=== PATIENT | male | born 1960 | race Caucasian/White ===

== ENCOUNTER 2022-04-13 11:32 | Outpatient (CLI) | payer MEDICAID, SELFPAY ==
[2022-04-13 14:44] LABS: Chloride* 109 mmol/L (96-114); Potassium* 4.8 mmol/L (3.6-5.1); Sodium* 143 mmol/L (135-149)
[2022-04-13 14:46] LABS: Cholesterol* 204 mg/dL (90-199); Creatinine* 1.2 mg/dL (0.5-1.5); Estimated Glomerular Filt Rate 70 ml/min
[2022-04-13 14:47] LABS: Blood Urea Nitrogen* 27 mg/dL (7-30); Calcium* 9.5 mg/dL (8.4-10.6); Carbon Dioxide* 28 mmol/L (20-32); Glucose* 80 mg/dL (60-115); Triglycerides* 61 mg/dL (40-149)
[2022-04-13 14:48] LABS: HDL Cholesterol* 78 mg/dL (>=40); LDL Cholesterol Calculated 114 mg/dL (<100)
[2022-04-13 15:18] LABS: PSA Diagnostic* 7.57 ng/mL (0.10-4.00)
== END 2022-04-13 11:33 | disposition home or self-care (01) ==
PROVIDERS: PCP Family Medicine; Visit Provider Family Medicine
DX: R97.20 Elevated prostate specific antigen [PSA] (principal); Z13.6 Encounter for screening for cardiovascular disorders
CPT/HCPCS: 80048; 80061; 84153

== ENCOUNTER 2022-06-21 07:44 | Outpatient (CLI) | payer MEDICAID, SELFPAY | END 2022-06-21 07:45 | disposition home or self-care (01) | PROVIDERS: PCP Family Medicine; Visit Provider Surgery | DX: Z86.010 Personal history of colon polyps (principal); K63.5 Polyp of colon; K62.1 Rectal polyp; Z80.0 Family history of malignant neoplasm of digestive organs; Z83.71 Family history of colonic polyps | CPT/HCPCS: 45380; 45385; 88305; 99153; J1200; J2250; J3010 ==

== ENCOUNTER 2022-09-05 16:09 | Emergency (ER) | payer MEDICAID, SELFPAY ==
[2022-09-05 16:15] VITALS: BP 118/76; PULSE 60; RESP 14; TEMP 36.5; O2SAT 97; BMI 27.3
--- NOTE | 2022-09-05 16:31 | ED.GENADULT ---
HPI - General Adult General Chief complaint: Diarrhea Stated complaint: Diarrhea Time Seen by Provider: 09/05/22 16:11 History of Present Illness HPI narrative: Patient is 62 year white male has had watery diarrhea for 24 hours, he feels well otherwise no fever chills no abdominal pain, no blood in his stool. He has had some irritation is anal area but otherwise feels well. No recent travel. No blood in his stool as mention it has been a brown watery stool. He has taken some Imodium that has minimal effect. He has not been eating very much. Related Data Home Medications Medication Instructions Recorded Confirmed betamethasone, augmented 0.05 % topical .as needed PRN 04/12/22 04/13/22 topical ointment Previous Rx's Medication Instructions Recorded peg 3350-electrolytes 236 240 ml PO Q10M #4,000 mL 04/17/22 gram-22.74 gram-6.74 gram-5.86 gram solution (Golytely) Allergies Allergy/AdvReac Type Severity Reaction Status Date / Time escitalopram Allergy Intermediate Dizziness Verified 04/13/22 11:08 amoxicillin Allergy Mild Rash Verified 04/13/22 11:08 Review of Systems Status of ROS: Reports: 6 or more systems reviewed and unremarkable except as noted in History and below Narrative: No history of colitis, Crohn's disease, or ulcerative colitis. No history of exposure to recent colon illness or viral enteritis. [facility] Medical History Migraines ?G43.909 - Migraine, unspecified, not intractable, without status migrainosus (ICD-10) Restless legs syndrome ?G25.81 - Restless legs syndrome (ICD-10) [place] fracture (11/25/03) ?S02.401A - Maxillary fracture, unspecified side, initial encounter for closed fracture (ICD-10) History of severe acute respiratory syndrome coronavirus 2 (SARS-CoV-2) disease (03/15/20) ?Z86.16 - Personal history of COVID-19 (ICD-10) High prostate specific antigen (PSA) (2013) ?R97.20 - Elevated prostate specific antigen [PSA] (ICD-10) Adenomatous polyp of colon (03/15/14) ?D12.6 - Benign neoplasm of colon, unspecified (ICD-10) Surgical History History of nevus excision (2006) ?Z98.890 - Other specified postprocedural states (ICD-10) ?Z87.2 - Personal history of diseases of the skin and subcutaneous tissue (ICD-10) History of cervical spinal surgery (08/09/04) ?Z98.890 - Other specified postprocedural states (ICD-10) Family History Other Colon cancer Social History Narrative: marriedx2, 2 kids, non-smoker, social EtOH Smoking Status: Never smoker How often do you have a drink containing alcohol: 2-3 times a week How many standard drinks containing alcohol do you have on a typical day: 3 or 4 How often do you have six or more drinks on one occasion: Never AUDIT-C Alcohol total score: 4 Non-prescribed substance use: denies use Little interest or pleasure in doing things: not at all Feeling down, depressed, or hopeless: not at all Exam Narrative: Exam Narrative: Objective vital signs unremarkable Abdomen is benign soft nontender no masses no peritonitis Const: Vital Signs, click to edit/add: Vital Signs - 24 hr 09/05/22 16:15 Temperature 97.7 F Pulse Rate [Pulse Oximeter] 60 Respiratory Rate 14 Blood Pressure [Ri ght Upper Arm] 118/76 Pulse Oximetry 97 Oxygen Delivery Me thod Room Air Course Vital Signs Vital signs: Initial Vital Signs Temperature 97.7 F 09/05/22 16:15 Temperature Source Temporal Artery Scan 09/05/22 16:15 Pulse Rate 60 09/05/22 16:15 Respiratory Rate 14 09/05/22 16:15 Blood Pressure 118/76 09/05/22 16:15 Blood Pressure Mean 90 09/05/22 16:15 Pulse Oximetry 97 09/05/22 16:15 Oxygen Delivery Method Room Air 09/05/22 16:15 Vital Signs Temperature 97.7 F 09/05/22 16:15 Pulse Rate 60 09/05/22 16:15 Respiratory Rate 14 09/05/22 16:15 Blood Pressure 118/76 09/05/22 16:15 Pulse Oximetry 97 09/05/22 16:15 Oxygen Delivery Method Room Air 09/05/22 16:15 Temperature 97.7 F 09/05/22 16:15 Pulse Rate 60 09/05/22 16:15 Respiratory Rate 14 09/05/22 16:15 Blood Pressure 118/76 09/05/22 16:15 Pulse Oximetry 97 09/05/22 16:15 Oxygen Delivery Method Room Air 09/05/22 16:15 Medical Decision Making MDM Narrative Medical decision making narrative: Patient is a 62 year white male who is quite healthy who has some watery diarrhea, for about a day, no recent travel, no blood in stool no abdominal pain. At this point I think I would recommend simply observation yogurt by mouth, fluids, Sitz baths as needed to clean, continue the Imodium as needed, update regular doctor next 2-3 days not improving changes concerns worsening regular diet, exclusion of dairy products for a couple of days. They will return if there is issues or concerns. Recommend potassium containing foods such is green leafy vegetables orange use bananas. Also discussed use of a brat diet briefly. Discharge Plan Discharge Clinical Impression: Diarrhea Patient Disposition: Home w/ Parent or Adult Condition: Stable Additional Instructions: Light activity, yogurt by mouth 3 times a day, Sitz baths as needed to clean after diarrhea. May continue Imodium ED as needed. Recheck with primary care in the next 2-3 days not improving return to ED sooner problems or concerns. Avoid dairy products for a couple of days, but may eat otherwise normally Activity Level: Light activity Discharge Diet: Regular Prescriptions: No Action betamethasone, augmented 0.05 % ointment topical .as needed PRN peg 3350-electrolytes [Golytely] 236-22.74-6.74 -5.86 gram recon soln 240 ml PO Q10M Qty: 4000 0RF Rx Instructions: until fecal effluent is clear Follow Up/Referrals: Samuel Liu MD [Primary Care Provider] - Stand Alone Forms: [employer] Info Instructions
== END 2022-09-05 16:46 | disposition home or self-care (01) ==
LOC: ED 16:35
PROVIDERS: Emergency Provider Family Medicine; PCP Family Medicine
DX: R19.7 Diarrhea, unspecified (principal)
CPT/HCPCS: 99282; 99283

== ENCOUNTER 2023-04-26 08:57 | Outpatient (CLI) | payer MEDICAID, SELFPAY | END 2023-04-26 08:58 | disposition home or self-care (01) | PROVIDERS: PCP Family Medicine; Visit Provider Family Medicine | DX: R53.83 Other fatigue (principal); R03.0 Elevated blood-pressure reading, without diagnosis of hypertension; R97.20 Elevated prostate specific antigen [PSA] | CPT/HCPCS: 80048; 80061; 84153 ==

== ENCOUNTER 2023-09-04 12:26 | Outpatient (CLI) | payer MEDICAID, SELFPAY ==
--- NOTE | 2023-09-04 13:00 | MR_ITS ---
Patient: HARDEEP GONZALEZ Facility:?[facility] Patient ID:?[id number] Site Patient ID:?[id number]. Site :?[id number] Study:?MRI-Head W/ and W/O Cont 20 CC DOATERM IAC'S-09/04/2023 2:53:08 PM Ordering Physician:?PEDRO LUIS LAM Final Report: INDICATION: Bilateral hearing loss. COMPARISON: 03/22/2020. TECHNIQUE: Multiplanar T1, T2, FLAIR and diffusion-weighted imaging.. Post gadolinium T1 weighted sequences. FINDINGS: Normal brain parenchymal morphology and signal intensity. No intracranial hemorrhage. No abnormal ventricular dilatation. Intracranial vascular flow voids are preserved. No mass effect. No midline shift. No restricted diffusion to suggest acute ischemia. No intracranial hemorrhage. No abnormal ventricular dilatation. Intracranial vascular flow voids are preserved. No mass effect or midline shift. No restricted diffusion to suggest acute ischemia. No abnormal enhancement or enhancing lesions within the brain parenchyma. Dedicated sequence of the skullbase and IAC`s demonstrates normal course of cranial nerves 7 and 8 from the root entry zone to the fundus of the IAC`s. Normal fluid signal within the cochlea and vestibule. Normal root entry zone of the bilateral trigeminal nerves. No abnormal mass or enhancement within cerebellopontine angles or IAC`s. Bilateral orbits are unremarkable. Normal appearing sella. Visualized paranasal sinuses and mastoid air cells are unremarkable. IMPRESSION: 1. No acute intracranial abnormality 2. Normal brain parenchymal morphology and signal intensity 3. No abnormal enhancement or enhancing lesions. 4. Dedicated sequences of the skull base and IAC`s demonstrates normal course of the cranial nerves. No abnormal mass or enhancement Dictated by Ajit Diaz MD @ 09/05/2023 12:47:46 PM Signed by:?Ajit Diaz MD @09/05/2023 12:47:46 PM (Electronic Signature)
== END 2023-09-04 12:27 | disposition home or self-care (01) ==
LOC: MRI 12:28
PROVIDERS: PCP Family Medicine; Visit Provider Otolaryngology
DX: H91.8X3 Other specified hearing loss, bilateral (principal)
CPT/HCPCS: 70553; A9575

== ENCOUNTER 2024-06-29 10:03 | Outpatient (CLI) | payer MEDICAID, SELFPAY | END 2024-06-29 10:04 | disposition home or self-care (01) | PROVIDERS: PCP Family Medicine; Visit Provider Family Medicine | DX: R97.20 Elevated prostate specific antigen [PSA] (principal); R03.0 Elevated blood-pressure reading, without diagnosis of hypertension; Z13.6 Encounter for screening for cardiovascular disorders | CPT/HCPCS: 80048; 80061; 84153 ==

== ENCOUNTER 2025-01-17 08:38 | Emergency (ER) | payer MEDICAID, SELFPAY ==
--- OUTSIDE RECORDS SUMMARY | 2025-01-17 08:40 | XMS_ITS | Clinical Summary ---
Author Organization [facility] Address [address] [place] [id number] Care Team Providers Care Hydraulic Plumber Helper Name Role Phone Samuel Liu MD Primary Care Provider + Allergies Active Allergy Reactions Criticality Noted Date Comments Amoxicillin Rash Medium 07/03/2010 Penicillins Rash 09/11/2017 Medications betamethasone dipropionate 0.05% (DIPROLENE) 0.05 % ointment APPLY TOPICALLY TO THE AFFECTED AREA TWICE DAILY 15 g 0 4 Active CPAPIndications:O bstructive sleep apnea CPAP machine for home use at pressure: 5-16 CM H20 , Heated humidifier x 1, Humidifier chamber x 1, Full face mask with cushion x 1, Heated tubing x 1, Headgear x 1, Filters: Disposable x 1pk & Reusable x 1pk, Length of Need: 99 months, Frequency of use: Daily 1 Device 11 8 Active rOPINIRole (REQUIP) 1 mg tabletIndications :Restless leg syndrome Take 2 Tablets (2 mg) by mouth 2 times daily. 120 tablet. 1 Active Active Problems Problem Noted Date Diagnosed Date Obstructive sleep apnea 09/19/2017 Elevated PSA 08/02/2013 Restless legs syndrome (RLS) 03/31/2011 Immunizations Immunization Administration Dates Next Due Td (Age >=7 Years) 10/18/2005 Tdap 05/06/2013 Family History Medical History Relation Name Comments Asthma Father Diabetes Son Zachary Type 1 Relation Name Status Comments Brother Alive 3 brothers Father (Age 72) Mother Alive Sister Alive 3 sisters Son Zachary Social History Tobacco Use Types Packs/Day Years Used Date Smoking Tobacco: Never Smokeless Tobacco: Never Alcohol Use Standard Drinks/Week Comments Yes 2.5 (1 standard drink = 0.6 oz p ure alcohol) Sex and Gender Information Value Date Recorded Sex Assigned at Not on file Legal Sex Male 5:23 AM DISCOUNT CLERK Gender Identity Not on file Sexual Orientation Not on file 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 Not on file Not on file N ot on file [employer] Not on file Not on file Not on pablo e 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 [employer] Not on file Not on file Not on f ile Obstetrics History Last Filed Vital Signs Vital Sign Reading Time Taken Comments Blood Pressure 102/60 09/19/2017 8:16 AM CDT Pulse 72 09/19/2017 8:16 AM CDT Temperature 36.6 C (97.8 F) 09/19/2017 8:16 AM CDT Respiratory Rate 20 09/19/2017 8:16 AM CDT Oxygen Saturation 95% 09/19/2017 8:16 AM CDT Inhaled Oxygen Concentration - - Weight 101.2 kg (223 lb) 09/19/2017 8:16 AM CDT Height 199.4 cm (6' 6.5) 07/04/2017 10:53 AM CS T Body Mass Index 25.44 07/04/2017 10:53 AM DISCOUNT CLERK Plan of Treatment Health Maintenance Due Date Last Done Comments Hepatitis C screening for age 18-79 1980 Pneumococcal series for age 50+ (1 of 1 - PCV) 2012 Zoster (shingles) series for age 50+ (1 of 2) 2012 BMI (ht and wt on same day) for age 18+ 07/04/2018 07/04/2017, 04/20/2016 Depression screening for age 12+ 07/04/2018 07/04/2017 Colonoscopy through age 75 03/15/2019 03/15/2014, Lipids for age 45-75 06/26/2022 06/26/2017, 04/20/2016, 04/11/2015, Additional history exists Tetanus booster 05/06/2023 05/06/2013, 10/18/2005 COVID-19 vaccine series ( season) 2025 01/11/2021, 12/15/2020 Influenza Vaccine (#1) 2025 RSV vaccine for adults or (1 - 1-dose 75+ series) 2037 HIV for age 15-65 Completed 06/07/2011 Hepatitis B series for 19+ Aged Out N o longer eligible based on patient's age to complete this topic Procedures Procedure Name Priority Date/Time Associated Diagnosis Comments LIPID PANEL W REFLEX MEASURED LDL Routine 06/26/2017 8:44 AM DISCOUNT CLERK Routine general medical examination at a health care facility COLONOSCOPY SCREENING Routine 03/15/2014 Special screening for malignant neoplasms, colon Family history of colon cancer ANTI HIV 1/2 Routine 06/07/2011 2:09 PM DISCOUNT CLERK Screening for STDs (sexually transmitted diseases) from Last 3 Months or Most Recently Relevant to Health Maintenance Results * (ABNORMAL) LIPID PANEL W REFLEX MEASURED LDL (06/26/2017 8:44 AM DISCOUNT CLERK) CHOLESTEROL,TOTAL 205(H) 100 - 199 mg/dL 06/26/2017 9:59 AM DISCOUNT CLERK [facility] TRIGLYCERIDES 83 <150 mg/dL 06/26/2017 9:59 AM DISCOUNT CLERK [facility] HDL CHOLESTEROL 58 >40 mg/dL 8 9:59 AM DISCOUNT CLERK [facility] NON-HDL CHOLESTEROL 147(H) <145 mg/dl 06/26/2017 9:59 AM DISCOUNT CLERK [facility] CHOL/HDL RATIO 3.53 <4.50 06/26/2017 9:59 AM DISCOUNT CLERK [facility] LDL CHOLESTEROL 130 <=130 mg/dL 06/26/2017 9:59 AM DISCOUNT CLERK [facility] PROVIDER ORDERED STATUS RANDOM 06/26/2017 9:59 AM DISCOUNT CLERK [facility] Blood BLOOD SPECIMEN / Unknown Venipuncture / Unknown 06/26/2017 8:44 AM DISCOUNT CLERK 06/26/2017 8:44 AM DISCOUNT CLERK us Samuel Liu MD CHEMISTRY Final Re sult [address] [address] * COLONOSCOPY SCREENING (03/15/2014) us Samuel Liu MD GI PROCEDURE ORD Final R esult * ANTI HIV 1/2 (06/07/2011 2:09 PM DISCOUNT CLERK) ANTI HIV 1/2 Non-reacti ve [facility] Blood specimen (specimen) BLOOD SPECIMEN / Unknown 06/07/2011 2:09 PM DISCOUNT CLERK 06/07/2011 2:02 PM DISCOUNT CLERK us Samuel Liu MD SEND OUTS Final Re sult [facility] INTERNAL ZIP [id number] [place] [id number] from Last 3 Months or Most Recently Relevant to Health Maintenance Insurance [facility] Care Teams Hydraulic Plumber Helper Relationship Specialty Start Date End Date Samuel Liu MD PCP - General Family Practice 07/02/03
--- OUTSIDE RECORDS SUMMARY | 2025-01-17 08:40 | XMS_ITS | Clinical Summary ---
Author Organization [facility] Address [address], [place] [address] Care Team Providers Care Ecmo Specialist Name Role Phone Clinician, Not Found MD Primary Care Provider Un available Source Comments You are receiving this document as you are listed as the primary care provider,follow-up provider, or the patient has been referred to you for consultation.This is in compliance with the Medicare and[facility] EHR Incentive Program,which states Providers who transition their patient to another setting of careor provider of care or refers their patient to another provider of care shouldprovide summary care record for each transition of care or referral. [facility] Allergies No known active allergies Medications No known medications Active Problems No known active problems Social History Tobacco Use Types Packs/Day Years Used Date Smoking Tobacco: Never Smokeless Tobacco: Never Sex and Gender Information Value Date Recorded Sex Assigned at Not on file Legal Sex Male 4:55 PM PILE DRIVER Gender Identity Not on file Sexual Orientation Not on file Last Filed Vital Signs Vital Sign Reading Time Taken Comments Blood Pressure - - Pulse - - Temperature - - Respiratory Rate - - Oxygen Saturation - - Inhaled Oxygen Concentration - - Weight 107 kg (236 lb) 07/02/2017 11:17 AM PILE DRIVER Height 198.1 cm (6' 6) 07/02/2017 11:17 AM PILE DRIVER Body Mass Index 27.27 07/02/2017 11:17 AM PILE DRIVER Plan of Treatment Health Maintenance Due Date Last Done Comments Colon Cancer Screening Plan Due 1960 Hep C Screening (Preventive Services) 1960 PSA Screening Discussion 1960 Adult Preventive Visit 1980 Cholesterol 1997 Pneumococcal Vaccine 50+ Yrs (1 of 1 - PCV) 2012 Zoster/Shingles Vaccine (1 o f 2) 2012 COVID-19 Vaccine (3 - 2024-2 6 season) 2025 01/11/2021, 12/15/2020 Influenza Vaccine (#1) 2025 08/08/2015 DTaP/Tdap/Td Vaccine (3 - Tdap) 03/10/2025 03/10/2015, 05/06/2013, 10/18/2005 RSV Vaccine (1 - 1-dose 75+ series) 2037 HIV Screening (Preventive Services) Completed 06/07/2011 HepA Vaccine Aged Out No longer eligi ble based on patient's age to complete this topic HepB Vaccine Aged Out No longer eligi ble based on patient's age to complete this topic Hib Vaccine Aged Out No longer eligi ble based on patient's age to complete this topic IPV (Polio) Vaccine Aged Out No longe r eligible based on patient's age to complete this topic MCV4 Vaccine Aged Out No longer eligi ble based on patient's age to complete this topic Meningococcal B Vaccine Aged Out No l onger eligible based on patient's age to complete this topic Insurance [facility] Care Teams Ecmo Specialist Relationship Specialty Start Date End Date Clinician, Not Found, [place] [address] PCP - General 03/17/24
[2025-01-17 08:50] VITALS: BP 164/76; PULSE 83; RESP 16; TEMP 37.4; O2SAT 93; BMI 27.3
--- NOTE | 2025-01-17 09:13 | ED_ITS ---
HPI - Headache General Chief Complaint: Headache/Migraine Stated Complaint: migraine Time Seen by Provider: 01/17/25 08:52 History of Present Illness HPI Narrative: This 64-year-old male states that he has headaches every day since COVID hit about 5 years ago. He comes in today because the pain is worse. He does not report any nausea or light sensitivity. He does not sleep well at night and reports some restless leg symptoms. He is not on any medications currently. He has been using more natural treatments and states that usually he is able to manage these headaches but not recently. He does not have any neurologic deficits. Related Data Previous Rx's ?Medication ?Instructions ?Recorded amitriptyline 25 mg tablet 25 mg PO QHS #30 tabs 01/17 ketorolac 10 mg tablet 10 mg PO TID 5 days #15 tabs 01/17/25 rizatriptan 10 mg tablet (Maxalt) See Rx Instructions PO .COMPLEX 01/17/25 #10 tabs Allergies Allergy/AdvReac Type Severity Reaction Status Date / Time escitalopram Allergy Intermediate Dizziness Verified 01/17/25 08:57 amoxicillin Allergy Mild Rash Verified 01/17/25 08:57 Review of Systems Status of ROS: Reports: 10 or more systems reviewed and unremarkable except as noted in History and below Narrative: Constitutional: No fevers, no weight gain or loss. Eyes: No discharge. No vision changes. HENT: No congestion, no sore throat, no ear pain. Cardiovascular: No chest pain, no palpitations. Respiratory: No shortness of breath, no wheezes, no cough. Gastrointestinal: No abdominal pain, no vomiting, no diarrhea. Genitourinary: No dysuria, no hematuria. Musculoskeletal: Normal range of motion. Skin: No rashes, no pruritis. Neurological: No dizziness, weakness, sensory change, speech change. Endo/Heme/Allergies: No bruising or bleeding. No polydipsia. Pysch: no suicidality, no anxiety. He reports insomnia.. All other systems reviewed and are negative. [facility] Medical History (Updated 01/17/25 @ 10:59 by Abrahan Flores MD) BPH (benign prostatic hyperplasia) ?N40.0 - Benign prostatic hyperplasia without lower urinary tract symptoms (ICD-10) Migraines ?G43.909 - Migraine, unspecified, not intractable, without status migrainosus (ICD-10) Restless legs syndrome ?G25.81 - Restless legs syndrome (ICD-10) High prostate specific antigen (PSA) (2013) ?R97.20 - Elevated prostate specific antigen [PSA] (ICD-10) Adenomatous polyp of colon (03/15/14) ?D12.6 - Benign neoplasm of colon, unspecified (ICD-10) [place] fracture (11/25/03) ?S02.401A - Maxillary fracture, unspecified side, initial encounter for closed fracture (ICD-10) History of severe acute respiratory syndrome coronavirus 2 (SARS-CoV-2) disease (03/15/20) ?Z86.16 - Personal history of COVID-19 (ICD-10) Surgical History Status post open reduction and internal fixation (ORIF) of fracture ?Z98.890 - Other specified postprocedural states (ICD-10) ?Z87.81 - Personal history of (healed) traumatic fracture (ICD-10) History of nevus excision (2006) ?Z98.890 - Other specified postprocedural states (ICD-10) ?Z87.2 - Personal history of diseases of the skin and subcutaneous tissue (ICD-10) History of cervical spinal surgery (08/09/04) ?Z98.890 - Other specified postprocedural states (ICD-10) Family History Other Colon cancer Social History (Updated 04/29/23 @ 01:27 by Samuel Liu MD) Narrative: x 2, 2 kids, non-smoker, 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, 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 What is your current living situation?: I presently have a place to live Problems where you live: no known problems In the past 12 months, utilities in danger of being shut off: no In past 12 months, lack of transportation kept you from medical appts, meetings, work, or getting things needed for daily living: no In the past 12 mos, have been you worried that your food would run out before you had money to buy more?: never true In the past 12 mos, the food you bought just didn't last and you didn't have money to buy more?: never true Smoking Status: Never smoker How often do you have a drink containing alcohol: 2-3 times a week How many standard drinks containing alcohol do you have on a typical day: 3 or 4 How often do you have six or more drinks on one occasion: Never AUDIT-C Alcohol total score: 4 Non-prescribed substance use: marijuana (any form) How often does anyone, including family, friends and others, physically hurt you : never How often does anyone, including family, friends and others, insult or talk down to you: never How often does anyone, including family, friends and others, threaten you with harm: never How often does anyone, including family, friends and others, scream or curse at you: never Exam Narrative: Exam Narrative: Constitutional: Well-developed, well-nourished, no acute distress. HEENT: Normocephalic, atraumatic. Neck: Normal range of motion. Nontender. Supple. Heart: Regular. No murmurs. Normal rate. Intact distal pulses. Lungs: Clear to auscultation. No chest discomfort. No wheezes, rhonchi, or rales. Abdomen: Normal bowel sounds. Nontender. No rebound tenderness. Genitalia: Deferred. Back: No midline tenderness. Normal range of motion. Extremities: Normal range of motion. No injury. Skin: Intact. No rash. Warm. No erythema or pallor. Neurologic: No altered sensation. No weakness. Alert and oriented. Psychiatric: No suicidality. No anxiety or depression. No insomnia. Nursing notes and vitals signs are reviewed. Const: Vital Signs, click to edit/add: Vital Signs - 24 hr 01/17/25 08:50 01/17/25 10:32 Temperature 99.4 F Pulse Rate [Pulse Oximeter] 83 65 Respiratory Rate 16 12 Blood Pressure [Ri ght Upper Arm] 164/76 H Pulse Oximetry 93 93 Oxygen Delivery Me thod Room Air Room Air Course Vital Signs Vital signs: Initial Vital Signs Temperature 99.4 F 01/17/25 08:50 Temperature Source Temporal Artery Scan 01/17/25 08:50 Pulse Rate 83 01/17/25 08:50 Respiratory Rate 16 01/17/25 08:50 Blood Pressure 164/76 H 01/17/25 08:50 Blood Pressure Mean 105 01/17/25 08:50 Blood Pressure Position Sitting 01/17/25 08:50 Pulse Oximetry 93 01/17/25 08:50 Oxygen Delivery Method Room Air 01/17/25 08:50 Vital Signs Temperature 99.4 F 01/17/25 08:50 Pulse Rate 83 01/17/25 08:50 Respiratory Rate 16 01/17/25 08:50 Blood Pressure 164/76 H 01/17/25 08:50 Pulse Oximetry 93 01/17/25 08:50 Oxygen Delivery Method Room Air 01/17/25 08:50 Temperature 99.4 F 01/17/25 08:50 Pulse Rate 65 01/17/25 10:32 Respiratory Rate 12 01/17/25 10:32 Blood Pressure 164/76 H 01/17/25 08:50 Pulse Oximetry 93 01/17/25 10:32 Oxygen Delivery Method Room Air 01/17/25 10:32 Medications Administered Medications: Discontinued Medications Generic Name Dose Route Start Last Admin Trade Name Darnellq PRN Reason Stop Dose Admin Diphenhydramine HCl 50 mg 01/17/25 09:25 01/17/25 09:50 Diphenhydramine 50 Mg/Ml Inj IVP 01/17/25 09:26 50 mg ONCE ONE Administration Sodium Chloride 1,000 mls @ 1,000 mls/hr 01/17/25 09:30 01/17/25 10:20 0.9 % Sodium Chloride 1000 Ml IV 01/17/25 10:29 Infused .Q1H STEVE Infusion Ketorolac Tromethamine 30 mg 01/17/25 09:25 01/17/25 09:48 Ketorolac 30 Mg/Ml Inj IVP 01/17/25 09:26 30 mg ONCE ONE Administration Methylprednisolone Sodium Succinate 125 mg 01/17/25 09:25 01/17/25 09:52 Methylprednisolone Sod Succ 62.5 Mg/Ml (125) IVP 01/17/25 09:26 125 mg ONCE ONE Administration Ondansetron HCl 4 mg 01/17/25 09:25 01/17/25 09:48 Ondansetron 2 Mg/Ml Inj IVP 01/17/25 09:26 4 mg ONCE ONE Administration MDM - Headache MDM Narrative Medical decision making narrative: This patient comes in with report of headache as described above. He states that he gets migraine headaches frequently and typically is able to use [id number] medicines such as Excedrin migraine and get relief. He also reports poor sleep at night. He is not showing any signs of neurologic deficit. There is no indication for imaging studies at this time. An IV was established where the patient received a L of normal saline, Toradol 30 mg, Benadryl 50 mg, Zofran 4 mg, and Solu-Medrol 125 mg. After about an hour he states that he is feeling much better and reports his pain at 2/10 in severity. He is okay to be discharged home. I did provide prescriptions for Toradol, amitriptyline as a possible preventative medicine that would help also with sleep potentially. He also received a prescription for Maxalt. Discharge Plan Discharge Clinical Impression: Migraines Patient Disposition: Home, Self-Care Condition: Improved Additional Instructions: Take medications as needed and directed. Follow up with MD for further management and treatment or return if worsening. Prescriptions: New ketorolac 10 mg tablet 10 mg PO TID 5 Days Qty: 15 0RF rizatriptan [Maxalt] 10 mg tablet See Rx Instructions .ROUTE .COMPLEX Qty: 10 2RF Rx Instructions: take 1 tab at onset of headache; if no relief may repeat 1 tab after at least 2 hrs; max = 3 tabs/24 hr amitriptyline 25 mg tablet 25 mg PO QHS Qty: 30 2RF Follow Up/Referrals: Samuel Liu MD [Primary Care Provider, Family Practice] Stand Alone Forms: [employer] Info Instructions
[2025-01-17] MEDS: ONDANSETRON 2 MG/ML inj 4 MG IVP (09:48)
[2025-01-17] MEDS: METHYLPREDNISOLONE SOD SUCC 62.5 MG/ML (125) 125 MG IVP (09:52)
[2025-01-17 10:32] VITALS: PULSE 65; RESP 12; O2SAT 93
== END 2025-01-17 11:07 | disposition home or self-care (01) ==
PROVIDERS: Emergency Provider Emergency Medicine Emergency Medical Services; PCP Family Medicine
DX: G43.709 Chronic migraine without aura, not intractable, without status migrainosus (principal)
CPT/HCPCS: 96374; 96375; 99284; J1200; J1885; J2405; J2919; J7030

== ENCOUNTER 2025-01-19 18:10 | Emergency (ER) | payer MEDICAID, SELFPAY ==
[2025-01-19] VITALS (7 sets, daily range): BP systolic 135–163; BP diastolic 89–96; PULSE 65–75; RESP 16–18; TEMP 36.4–36.7; O2SAT 92–97; BMI 27.3
--- OUTSIDE RECORDS SUMMARY | 2025-01-19 18:12 | XMS_ITS | Clinical Summary ---
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 Payment Not on file Not on file N ot on file [employer] Not on file Not on [...] Body Mass Index 25.44 07/04/2017 10:53 AM SOFTWARE CONFIGURATION SPECIALIST Plan of Treatment Health Maintenance Due Date [...] REFLEX MEASURED LDL Routine 06/26/2017 8:44 AM SOFTWARE CONFIGURATION SPECIALIST Routine general medical examination at a health care facility COLONOSCOPY SCREENING Routine 03/15/2014 Special screening for malignant neoplasms, colon Family history of colon cancer ANTI HIV 1/2 Routine 06/07/2011 2:09 PM SOFTWARE CONFIGURATION SPECIALIST Screening for STDs (sexually transmitted diseases) from Last 3 Months or Most Recently Relevant to Health Maintenance Results * (ABNORMAL) LIPID PANEL W REFLEX MEASURED LDL (06/26/2017 8:44 AM SOFTWARE CONFIGURATION SPECIALIST) CHOLESTEROL,TOTAL 205(H) 100 - 199 mg/dL 06/26/2017 9:59 AM SOFTWARE CONFIGURATION SPECIALIST [facility] TRIGLYCERIDES 83 <150 mg/dL 06/26/2017 9:59 AM SOFTWARE CONFIGURATION SPECIALIST [facility] HDL CHOLESTEROL 58 >40 mg/dL 8 9:59 AM SOFTWARE CONFIGURATION SPECIALIST [facility] NON-HDL CHOLESTEROL 147(H) <145 mg/dl 06/26/2017 9:59 AM SOFTWARE CONFIGURATION SPECIALIST [facility] CHOL/HDL RATIO 3.53 <4.50 06/26/2017 9:59 AM SOFTWARE CONFIGURATION SPECIALIST [facility] LDL CHOLESTEROL 130 <=130 mg/dL 06/26/2017 9:59 AM SOFTWARE CONFIGURATION SPECIALIST [facility] PROVIDER ORDERED STATUS RANDOM 06/26/2017 9:59 AM SOFTWARE CONFIGURATION SPECIALIST [facility] Blood BLOOD SPECIMEN / Unknown Venipuncture / Unknown 06/26/2017 8:44 AM SOFTWARE CONFIGURATION SPECIALIST 06/26/2017 8:44 AM SOFTWARE CONFIGURATION SPECIALIST us Samuel Liu MD CHEMISTRY Final Re sult [address] [address] * COLONOSCOPY SCREENING (03/15/2014) us Samuel Liu MD GI PROCEDURE ORD Final R esult * ANTI HIV 1/2 (06/07/2011 2:09 PM SOFTWARE CONFIGURATION SPECIALIST) ANTI HIV 1/2 Non-reacti ve [facility] Blood specimen (specimen) BLOOD SPECIMEN / Unknown 06/07/2011 2:09 PM SOFTWARE CONFIGURATION SPECIALIST 06/07/2011 2:02 PM SOFTWARE CONFIGURATION SPECIALIST us Samuel Liu MD SEND OUTS Final Re sult [facility] INTERNAL ZIP [address] [place] [id number] from Last 3 Months or Most Recently Relevant to Health Maintenance Insurance [facility] Care Teams Administrative Services Coordinator Relationship Specialty Start Date End Date Samuel Liu MD PCP - General Family Practice 07/02/03
--- OUTSIDE RECORDS SUMMARY | 2025-01-19 18:12 | XMS_ITS | Clinical Summary ---
Author Organization [facility] Address [address], [place] [address] Care Team Providers Care Field Agent Name Role Phone Clinician, Not Found MD Primary Care Provider Un available Source Comments You are receiving this document as you are listed as the primary care provider,follow-up provider, or the patient has been referred to you for consultation.This is in compliance with the Medicare and[facility] Incentive [facility],which states Providers who [...] on file Legal Sex Male 4:55 PM PATIENT ACCESS SPECIALIST Gender Identity Not on file Sexual Orientation Not on file Last Filed Vital Signs Vital Sign Reading Time Taken Comments Blood Pressure - - Pulse - - Temperature - - Respiratory Rate - - Oxygen Saturation - - Inhaled Oxygen Concentration - - Weight 107 kg (236 lb) 07/02/2017 11:17 AM PATIENT ACCESS SPECIALIST Height 198.1 cm (6' 6) 07/02/2017 11:17 AM PATIENT ACCESS SPECIALIST Body Mass Index 27.27 07/02/2017 11:17 AM PATIENT ACCESS SPECIALIST Plan of Treatment Health Maintenance Due [...] patient's age to complete this topic Insurance [facility] Care Teams Field Agent Relationship Specialty Start Date End Date Clinician, Not Found, [place] [address] PCP - General 03/17/24
[2025-01-19] MEDS: METOCLOPRAMIDE HCL 10 MG in 0.9 % SODIUM CHLORIDE 100 ml 100 ML 306 MG IVPB (19:04)
--- NOTE | 2025-01-19 19:09 | ED_ITS ---
HPI - General Adult General Date Seen: 01/19/25 Chief complaint: Headache/Migraine Stated complaint: migraine Time Seen by Provider: 01/19/25 18:28 History of Present Illness HPI narrative: Patient is a 64-year-old here with his for evaluation of headache. He notes chronic daily migraine since having COVID 5 years ago. He told me he was seen by multiple people including Neurology at [facility], he said people gave him more more medications and nothing seemed to help so he finally discontinued all medications and has been controlling his headache with essential oils and CBD oil. He says he is generally able to keep things at about a 1/10 unless he gets a cold. He has had a cold for the past few days, was here on the for headache control which he says worked but it is now uncontrolled again. There is otherwise no atypical features, he has had headaches this bad before, he has had to going to the hospital for headaches before although not super frequently. He has not had fevers, vomiting, or neurologic changes or other severe symptoms Related Data Previous Rx's ?Medication ?Instructions ?Recorded amitriptyline 25 mg tablet 25 mg PO QHS #30 tabs 01/17 ketorolac 10 mg tablet 10 mg PO TID 5 days #15 tabs 01/17/25 rizatriptan 10 mg tablet (Maxalt) See Rx Instructions PO .COMPLEX 01/17/25 #10 tabs zolmitriptan 5 mg tablet (Zomig) 5 mg PO Q2-4H PRN cassie lazarus 01/19/25 headache #10 tabs Allergies Allergy/AdvReac Type Severity Reaction Status Date / Time escitalopram Allergy Intermediate Dizziness Verified 01/17/25 08:57 amoxicillin Allergy Mild Rash Verified 01/17/25 08:57 Review of Systems Status of ROS: Reports: 10 or more systems reviewed and unremarkable except as noted in History and below [facility] Medical History BPH (benign prostatic hyperplasia) ?N40.0 - Benign prostatic hyperplasia without lower urinary tract symptoms (ICD-10) Migraines ?G43.909 - Migraine, unspecified, not intractable, without status migrainosus (ICD-10) Restless legs syndrome ?G25.81 - Restless legs syndrome (ICD-10) High prostate specific antigen (PSA) (2013) ?R97.20 - Elevated prostate specific antigen [PSA] (ICD-10) Adenomatous polyp of colon (03/15/14) ?D12.6 - Benign neoplasm of colon, unspecified (ICD-10) [place] fracture (11/25/03) ?S02.401A - Maxillary fracture, unspecified side, initial encounter for closed fracture (ICD-10) History of severe acute respiratory syndrome coronavirus 2 (SARS-CoV-2) disease (03/15/20) ?Z86.16 - Personal history of COVID-19 (ICD-10) Surgical History Status post open reduction and internal fixation (ORIF) of fracture ?Z98.890 - Other specified postprocedural states (ICD-10) ?Z87.81 - Personal history of (healed) traumatic fracture (ICD-10) History of nevus excision (2006) ?Z98.890 - Other specified postprocedural states (ICD-10) ?Z87.2 - Personal history of diseases of the skin and subcutaneous tissue (ICD-10) History of cervical spinal surgery (08/09/04) ?Z98.890 - Other specified postprocedural states (ICD-10) Family History Other Colon cancer Social History Narrative: x 2, 2 kids, non-smoker, 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, 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 What is your current living situation?: I presently have a place to live Problems where you live: no known problems In the past 12 months, utilities in danger of being shut off: no In past 12 months, lack of transportation kept you from medical appts, meetings, work, or getting things needed for daily living: no In the past 12 mos, have been you worried that your food would run out before you had money to buy more?: never true In the past 12 mos, the food you bought just didn't last and you didn't have money to buy more?: never true Smoking Status: Never smoker Second hand tobacco smoke exposure: No How often do you have a drink containing alcohol: 2-3 times a week How many standard drinks containing alcohol do you have on a typical day: 3 or 4 How often do you have six or more drinks on one occasion: Never AUDIT-C Alcohol total score: 4 Non-prescribed substance use: marijuana (any form) How often does anyone, including family, friends and others, physically hurt you : never How often does anyone, including family, friends and others, insult or talk down to you: never How often does anyone, including family, friends and others, threaten you with harm: never How often does anyone, including family, friends and others, scream or curse at you: never Exam Narrative: Exam Narrative: Vital signs reviewed In general, alert, nontoxic middle-aged male. Looks comfortable. Head: Normocephalic, atraumatic. Eyes: Sclera clear. Pupils equal and reactive. ENT: Mucous membranes moist. Neck: Supple without adenopathy. Neurologic: Alert, conversant. Speech fluent, face symmetric. Moves all extremities equally. Skin: Warm, dry well perfused. Affect: Normal. Const: Vital Signs, click to edit/add: Vital Signs - 24 hr 01/19/25 18:22 Temperature 97.6 F Pulse Rate [Pulse Oximeter] 68 Respiratory Rate 16 Blood Pressure [Ri ght Upper Arm] 163/91 H Pulse Oximetry 95 Oxygen Delivery Me thod Room Air Course Course ED Course: Will place an IV, give Toradol, Reglan, Benadryl and a L of fluid as this worked well for him last time. In terms of what to use at home, he was prescribed Toradol, amitriptyline and rizatriptan. He has not had good success with these medications, perhaps not surprising since it sounds like he has been tried on numerous things in the past without effect. He does have an appointment for Botox in 9 days time so he is hoping just to make it until then. He says he typically does not like taking narcotics but would not be opposed to a short course to get him through the next week. Discussed that narcotics are generally not her 1st choice for migraine as rebound can be, problem, but given that he has had no luck with migraine medications and that he has a different plan in [facility] for a week from now probably not unreasonable. He feels significantly improved after medications. I have prescribed Zomig to see if a different triptan would work better for him I also gave him some tramadol. He can use these as needed, hopefully keep headache under control for him until he follows up for Botox next week. Return as needed. Vital Signs Vital signs: Initial Vital Signs Temperature 97.6 F 01/19/25 18:22 Temperature Source Temporal Artery Scan 01/19/25 18:22 Pulse Rate 68 01/19/25 18:22 Respiratory Rate 16 01/19/25 18:22 Blood Pressure 163/91 H 01/19/25 18:22 Blood Pressure Mean 115 H 01/19/25 18:22 Blood Pressure Position Sitting 01/19/25 18:22 Pulse Oximetry 95 01/19/25 18:22 Oxygen Delivery Method Room Air 01/19/25 18:22 Vital Signs Temperature 97.6 F 01/19/25 18:22 Pulse Rate 68 01/19/25 18:22 Respiratory Rate 16 01/19/25 18:22 Blood Pressure 163/91 H 01/19/25 18:22 Pulse Oximetry 95 01/19/25 18:22 Oxygen Delivery Method Room Air 01/19/25 18:22 Temperature 98.0 F 01/19/25 21:02 Pulse Rate 72 01/19/25 21:02 Respiratory Rate 18 01/19/25 21:02 Blood Pressure 138/89 01/19/25 21:02 Pulse Oximetry 97 01/19/25 21:00 Oxygen Delivery Method Room Air 01/19/25 21:00 Medications Administered Medications: Discontinued Medications Generic Name Dose Route Start Last Admin Trade Name Freq PRN Reason Stop Dose Admin Diphenhydramine HCl 25 mg 01/19/25 18:44 01/19/25 19:05 Diphenhydramine 50 Mg/Ml Inj IVP 01/19/25 18:45 25 mg ONCE ONE Administration Sodium Chloride 1,000 mls @ 1,000 mls/hr 01/19/25 18:45 01/19/25 20:02 0.9 % Sodium Chloride 1000 Ml IV 01/19/25 19:44 Infused .Q1H STEVE Infusion Metoclopramide HCl 10 mg/ 102 mls @ 306 mls/hr 01/19/25 18:44 01/19/25 19:25 Sodium Chloride IVPB 01/19/25 18:45 Infused ONCE ONE Infusion Magnesium Sulfate/Dextrose 1 gm in 100 mls @ 100 mls/hr 01/19/25 19:35 01/19/25 20:59 Magnesium Sulf 1 G/100 Ml IVPB 01/19/25 20:34 Infused ONCE ONE Infusion Ketorolac Tromethamine 15 mg 01/19/25 18:44 01/19/25 19:06 Ketorolac 15 Mg/Ml Inj IVP 01/19/25 18:45 15 mg ONCE ONE Administration Methylprednisolone Sodium Succinate 125 mg 01/19/25 19:34 01/19/25 19:52 Methylprednisolone Sod Succ 62.5 Mg/Ml (125) IVP 01/19/25 19:35 125 mg ONCE ONE Administration Medical Decision Making Lab Data Labs: Lab Results 01/19/25 01/19/25 Range/Units 16:00 19:00 Magnesium 2.1 (1.5-2.6) mg/dL Vitamin B12 418 ([phone]) pg/mL Discharge Plan Discharge Clinical Impression: Chronic migraine without aura Patient Disposition: Home, Self-Care Condition: Improved Instructions: Migraine Headache (ED) Additional Instructions: Your magnesium level was 2.1. Your B12 level was 418 (normal). You can try zomig, tramadol or a combination of these to help manage your headaches until you are seen next week. Take prednisone as prescribed. Prescriptions: New zolmitriptan [Zomig] 5 mg tablet 5 mg PO Q2-4H PRN (Reason: migraine headache) Qty: 10 0RF Rx Instructions: do not exceed 2 doses per 24 hrs No Action ketorolac 10 mg tablet 10 mg PO TID 5 Days Qty: 15 0RF rizatriptan [Maxalt] 10 mg tablet See Rx Instructions .ROUTE .COMPLEX Qty: 10 2RF Rx Instructions: take 1 tab at onset of headache; if no relief may repeat 1 tab after at least 2 hrs; max = 3 tabs/24 hr amitriptyline 25 mg tablet 25 mg PO QHS Qty: 30 2RF Follow Up/Referrals: Samuel Liu MD [Primary Care Provider, Family Practice] Stand Alone Forms: [employer] Info Instructions
[2025-01-19] MEDS: METHYLPREDNISOLONE SOD SUCC 62.5 MG/ML (125) 125 MG IVP (19:52)
[2025-01-19] MEDS: MAGNESIUM SULF 1 G/100 ML 1 GM/100 ML PIGGYBACK IVPB (19:53)
[2025-01-19 20:19] LABS: Vitamin B12* 418 pg/mL (243-894)
== END 2025-01-19 21:03 | disposition home or self-care (01) ==
PROVIDERS: Emergency Provider Emergency Medicine; PCP Family Medicine
DX: G43.709 Chronic migraine without aura, not intractable, without status migrainosus (principal)
CPT/HCPCS: 36415; 82607; 83735; 96365; 96367; 96375; 99284; J1200; J1885; J2765; J2919; J3475; J7030

== ENCOUNTER 2025-02-16 03:15 | Emergency (ER) | payer MEDICAID, SELFPAY ==
--- OUTSIDE RECORDS SUMMARY | 2025-01-28 10:30 | XMS_ITS | Encounter Summary ---
Author Organization [facility] Address [address] [place] [id number] Care Team Providers Care Telegraphic Typewriter Operator Name Role Phone Kallie Todd MD Unavailable [phone] Samuel Liu MD Primary Care Provider + Reason for Referral * Other (Routine) - Open Specialty Diagnoses / Procedures Referred By Contac t Referred To Contact Diagnoses Intractable chronic migraine without aura and without status migrainosus Procedures N NEUROLOGY APPOINTMENT Kallie Todd MD [address] [place] [address] Phone: tel: fax: Referral ID Status Reason Start Date Expiration Date Visits Re quested Visits Authorized [id number] Open 04/29/2025 1 1 * Other (Routine) - Authorized Specialty Diagnoses / Procedures Referred By Contac t Referred To Contact Diagnoses Intractable chronic migraine without aura and without status migrainosus Procedures MCN PROCEDURE APPOINTMENT INJECTION,ONABOTULINUMTOXINA Kallie Todd MD [address] [place] [address] Phone: tel: fax: Referral ID Status Reason Start Date Expiration Date V isits Requested Visits Authorized [id number] Authorized 01/28/[phone] Reason for Visit * Reason Comments Migraine Encounter Details Date Type Department Care Team (Late st Contact Info) Description 01/28/2025 10:30 AM CDT Office Visit [facility] [place] [address] [place] [id number] Kallie Todd MD [address] [place] [id number] Intractable chronic migraine without aura and without status migrainosus (Primary Dx) Social History Tobacco Use Types Packs/Day Years Used Date Smoking Tobacco: Never Smokeless Tobacco: Never Tobacco Cessation:Counseling Given: Not Answered Alcohol Use Standard Drinks/Week Comments Yes 3 (1 standard drink = 0.6 oz pur e alcohol) Durning bowling Sex and Gender Information Value Date Recorded Sex Assigned at Not on file Legal Sex Male 8:27 AM CDT Gender Identity Not on file Sexual Orientation Not on file documented as of this encounter Progress Notes * Kallie Todd MD - 01/28/2025 10:30 AM CDT Images from the original note were not included. Referring Provider: No ref. provider found SUBJECTIVE History of Present Illness: Luis Carrington is a 64 y.o. male who is self-referred for migraine headaches. He is here with his girlfriend, Kimber. There are no recent outside medical records available for review today; however, there was a radiology report from [facility] [place] [facility] for a brain MRI, dated 09/04/2023, that was available for review today, which he had performed for bilateral hearing loss, as noted below. He reportshe never had a migraine headache until he had a COVID infection 6 years ago and, since then, he hashad chronic daily migrainous headaches that fluctuate in severity throughout the day. He states it is a frontal headache, initially starting as a dull pressure and then it builds up, becoming a throbb ing pain. When severe, he will have nausea, photophobia and phonophobia. He states his head also feels hot to the touch but he does not notice any flushing he has not had any other cranial autonomic symptoms with the headaches. He reports that he has not had any auras prior to the headaches and he has a constant headache on a daily basis, which can impact sleep, work and activities of daily living. He noted his headaches are worse if he has an underlying cold or upper respiratory infection. He recently had an upper respiratory infection, which exacerbated his headaches and he has been to the emergency room twice this month because of severe headaches. He reports he has tried several medications over the years and also went to [facility] a few years ago for further evaluation. He tells kinza was given a diagnosis of chronic migraines and had imaging of his head and no other apparent abnormalities could be found. He cannot recall all of the names of the medications that he has tried inthe past. He was trying to manage the headaches without prescription medications and has used CBD, peppermint oil and other natural oils, ice packs, the Cefaly device, massage and acupuncture. He reports he has some degree of a throbbing migrainous headache on a daily basis. With the recent flare of headaches, he tried a Medrol Dosepak which was somewhat helpful and was also given a prescription for tramadol to use as needed. He does not take oalt-owc-ebibwhl analgesics, as they were ineffective. He recalls trying zolmitriptan and rizatriptan, which were ineffective. Amitriptyline was tried at one point and that was ineffective but he cannot recall the names of other preventative medications. He does not recall trying a CGRP monoclonal antibody therapy or antagonist, nor has he tried neuro toxin therapy. He reports he has a telemedicine visit with a specialist in [place], [place] next week todiscuss possible bi-occipital nerve decompression surgery to see if that will help with his headaches. MIGRAINE MEDICATION HISTORY: Current Preventative(s): none Prior Preventative(s): amitriptyline (ineffective) Current Rescue Meds: Tramadol, Cefaly device Prior Rescue Meds: oxycodone; rizatriptan/Maxalt (ineffective); zolmitriptan/Zomig (ineffective) Review of Systems: Remaining 10 point ROS is otherwise negative, unless stated above. PAST MEDICAL HISTORY No past medical history on file. PAST SURGICAL HISTORY No past surgical history on file. FAMILY HISTORY No family history on file. SOCIAL HISTORY ALLERGIES/SENSITIVITIES Not on File CURRENT MEDS No current outpatient medications on file. OBJECTIVE Physical Exam: Vital Signs: There were no vitals taken for this visit. General: The patient is alert, cooperative, and not in acute distress. Neurologic Exam: Mental Status: Patient is alert with fluent speech. Orientation, memory, speech content, and cognitive function are intact. Cranial Nerves: CN II: Visual powell full to confrontation. Pupils are equal, round and reactive tolight. No afferent pupillary defect. Fundi - normal. CN III, IV, : Extraocular movements are full and without nystagmus. No ptosis. CN V: Facial sensation is intact to light touch bilaterally. CN VII: Facial strength is symmetric with rest and activation. CN VIII: Hearing is intact to conversation. CN IX, X: Palatal elevation is symmetric. CN XI: Shoulder shrug strength is normal. CN XII: Tongue protrudes midline without fasciculations or atrophy. Motor/MSK Exam: Tone: normal Bulk: normal for age Fasciculations: none Tremor: none Strength (MRC rating scale): Right Left Deltoid 5 5 Biceps 5 5 Triceps 5 5 Wrist extension 5 5 FDI 5 5 APB 5 5 Right Left Iliopsoas 5 5 Quadriceps 5 5 Hamstrings 5 5 Tibialis anterior 5 5 Gastrocnemius 5 5 EHL 5 5 Comment/Other: Sensory Exam: LT: intact and symmetric throughout Proprioception: normal Reflexes: Right Left Brachioradialis 2+ 2+ Biceps 2+ 2+ Triceps 2+ 2+ Patellar 2+ 2+ Achilles 2+ 2+ Plantar response - - Cerebellar Exam: Finger to nose test is normal. No dysmetria. Normal finger tapping bilaterally. Gait/Station: Normal stance and gait; no ataxia. Normal bilateral arm swing. Romberg is negative. Tandem walk intact. Aid: [x]None [] Cane []Quad cane []Walker []Wheelchair []PMD Lab/Radiology/Diagnostics Review: Brain MRI with/without filippo, 09/04/2023 ([facility] [place] [facility]) -no acute infarct, hemorrhage or mass. Normal brain parenchymal morphology and signal intensity. No hydrocephalus. No abnormal enhancement. [] I have personally reviewed images and my impression is above. [x] Images not available for personal review. Report documented above. ASSESSMENT/PLAN Luis Carrington is a 64 y.o. male with: Chronic, intractable migraine headaches without aura Reviewed the potential pathophysiology, etiologies, treatment and prognosis of migraine headaches He is interested in trying Botox therapy for the migraines and a prior authorization request will be sent to his insurance - we reviewed he would receive 155 units in 31 divided doses per the migraine protocol every 12 weeks; we also reviewed possible side effects of this therapy and he was cautioned it may take at least 2-3 rounds of injections before noticing at least 50% improvement of the headaches We reviewed diet and lifestyle modifications that may be useful for individuals with migraines Non-pharmacological treatments were discussed including the role of PT, massage, dry needling, etc,as well as non-invasive neuromodulation devices such as the Cefaly device, SpringTMS, gammaCore, and the Nerivio device Some individuals with migraines may also benefit from an occipital nerve block, supra-orbital nerveblock, and/or sphenopalatine ganglion john, which may be performed through a multidisciplinary painclinic For rescue therapy, I gave him a prescription for Nurtec ODT 75 mg daily as needed - he may take 1 tab/day and up to 18 days per month We reviewed that he needs to limit Tramadol and nany-rks-kqafqqz medications to no more than 3 daysper week for concerns of medication overuse and they can cause rebound headaches He is encouraged to continue to monitor the frequency and severity of the headaches Follow-up: 4-5 months Kallie Todd MD Board Certified in Neurology [facility] ENCOUNTER I spent 60 minutes on the date of the encounter with this patient consisting of activities before, during, and after the encounter including time spent: Preparing to see the patient including review of the chart, tests, and/or outside records. Reviewing and verifying information regarding the chief complaint and history already recorded by ancillary staff and/or the patient. Obtaining history and performing medically appropriate evaluation. Counseling the patient regarding the diagnosis, additional diagnostic considerations, possible diagnostic testing, and any potential options for therapy, including lifestyle, exercise and physical activity, and pharmacotherapy including risks/benefits, side effects, and adverse effects. I also counseled the patient on how to contact me with any questions or concerns, new or worsening symptoms. Ordering medications, tests, and/or procedures, and documenting in the chart. [employer] One ([employer] speech recognition receptionist telephone operator software was used to create portions of this document. Minor errors in receptionist telephone operator may be present.Please call with questions. MIPS 2025 Documentation of current medications reviewed every visit 2. Does patient use tobacco? No documented in this encounter Plan of Treatment Not on file documented as of this encounter Visit Diagnoses Diagnosis Intractable chronic migraine without aura and without status migrainosus- Primary Chronic migraine without aura, with intractable migraine, so stated, without mention of status migrainosus documented in this encounter Care Teams Telegraphic Typewriter Operator Relationship Specialty Start Date End Date Samuel Liu MD [address] [place] [address] PCP - General Family Medicine 01/28/25 Kallie Todd MD [address] [place] [address] Neurology 01/19/25 documented as of this encounter
--- OUTSIDE RECORDS SUMMARY | 2025-02-03 08:15 | XMS_ITS | Encounter Summary ---
Author Organization [facility] Address [address] [place] [address] Care Team Providers Care Distribution Systems Serviceperson Name Role Phone Elsewhere, Pcp Primary Care Provider Unavailabl e Reason for Visit * Reason Onset Date Comments Pre-visit Intake 02/03/2025 * Appointment Request (Routine) - Authorized Specialty Diagnoses / Procedures Referred By Ted montez Referred To Contact Neurology Referral ID Status Reason Start Date Expiration Date V isits Requested Visits Authorized [id number] Authorized 01/19/2025 04/21/2026 1 1 Encounter Details Date Type Department Care Team (Latest Contact Info) Description 02/03/2025 8:15 AM CDT Clinical Communication Virtual Review in [place], [place] [address] [place] [address] Pre-visit Intake Social History Tobacco Use Types Packs/Day Years Used Date Smoking Tobacco: Never Passive Smoke Exposure: Never Smokeless Tobacco: Never Tobacco Cessation:Counseling Given: Not Answered Alcohol Use Standard Drinks/Week Comments Yes 3 (1 standard drink = 0.6 oz pur e alcohol) Humiliation, Afraid, Rape, and Kick questionnair e Answer Date Recorded Within the last year, have y ou been afraid of your partner or ex-partner? No 06/19/2021 Within the last year, have y ou been humiliated or emotionally abused in other ways by your partner or ex-partner? Yes Within the last year, have y ou been kicked, hit, slapped, or otherwise physically hurt by your partner or ex-partner? No 06/19/2021 Within the last year, have y ou been raped or forced to have any kind of sexual activity by your partner or ex-partner? No 06/19/2021 Hunger Vital Sign Answer Date Recorded Within the past 12 months, y ou worried that your food would run out before you got the money to buy more. Never true 06/19/19 22 Within the past 12 months, t he food you bought just didn't last and you didn't have money to get more. Never true 06/19/2021 PRAPARE - Transportation Answer Date Re corded In the past 12 months, has l ack of transportation kept you from medical appointments or from getting medications? No 06/06 In the past 12 months, has l ack of transportation kept you from meetings, work, or from getting things needed for daily living? No 06/19/2021 Housing Stability Vital Sign Answer Luis Enrique e Recorded In the last 12 months, was t here a time when you were not able to pay the mortgage or rent on time? No 06/19/2021 In the last 12 months, how many places have you lived? 1 06/19/2021 In the last 12 months, was t here a time when you did not have a steady place to sleep or slept in a senior living (including now)? Yes 06/19/2021 Depression Answer Date Recor ded PHQ-9 Total Score (max 27) 3 01/10 Education Answer Date Recorded What is the highest level of school you have completed or the highest degree you have received? GED or equivalent Sex and Gender Information Value Date Recorded Sex Assigned at Male 04/04/2021 10:57 AM SENIOR ACCOUNT REPRESENTATIVE Legal Sex Male 5:17 PM SENIOR ACCOUNT REPRESENTATIVE Gender Identity Male 10/15/2017 8:11 AM CDT Sexual Orientation Straight 10/15/2017 8: 11 AM CDT Occupation Industry Job Start Date Job End Date Not on file Not on file Not on file Not on file documented as of this encounter Plan of Treatment Not on file documented as of this encounter Visit Diagnoses Not on filedocumented in this encounter Additional Health Concerns Assessment Noted Time PHQ-9 Depression Total Score: 3 01/11/20 21 12:13 PM CDT documented as of this encounter Care Teams Distribution Systems Serviceperson Relationship Specialty Start Date End Date Elsewhere, Pcp PCP - General Internal Medicine 02/03/25 02/08/25 documented as of this encounter
--- OUTSIDE RECORDS SUMMARY | 2025-02-09 13:00 | XMS_ITS | Encounter Summary ---
Author Organization [facility] Address [address] [place] [address] Care Team Providers Care Physics Instructor Name Role Phone Elsewhere, Pcp Primary Care Provider Unavailabl e Reason for Visit * Appointment Request (Routine) - Closed Specialty Diagnoses / Procedures Referred By Contac t Referred To Contact Neurology Diagnoses Chronic Migraine Referral ID Status Reason Start Date Expiration Date Visits Re quested Visits Authorized [id number] Closed 01/18/2025 04/20/2026 1 1 Encounter Details Date Type Department Care Team (Latest Contact Info) Description 02/09/2025 1:00 PM CDT Comprehensive Visit Department of Neurology in [place], [place] [address] [place] [address] Cedric Sanchez M.D. [address] [place] [address] New Daily Persistent Headache (NDPH) (Primary Dx); Headache Unspecified; Apnea Sleep Obstructive Social History Tobacco Use Types Packs/Day Years Used Date Smoking Tobacco: Never Passive Smoke Exposure: Never Smokeless Tobacco: Never Alcohol Use Standard Drinks/Week Comments Yes 3 [...] place to sleep or slept in a nursing home (including now)? Yes 06/19/2021 Depression Answer Date Recor ded PHQ-9 Total Score (max 27) 3 01/10 Education Answer Date Recorded What is the highest level of school you have completed or the highest degree you have received? GED or equivalent Sex and Gender Information Value Date Recorded Sex Assigned at Male 04/04/2021 10:57 AM COMMISSARY ASSISTANT Legal Sex Male 5:17 PM COMMISSARY ASSISTANT Gender Identity Male 10/15/2017 8:11 AM CDT Sexual Orientation Straight 10/15/2017 8: 11 AM CDT Occupation Industry Job Start Date Job End Date Not on file Not on file Not on file Not on file documented as of this encounter Last Filed Vital Signs Vital Sign Reading Time Taken Comments Blood Pressure 152/82 02/09/2025 12:51 PM CDT Pulse 61 02/09/2025 12:51 PM CDT Temperature - - Respiratory Rate - - Oxygen Saturation - - Inhaled Oxygen Concentration - - Weight 104 kg (228 lb 13.4 oz) 02/09/2025 12:51 PM CDT Height 198.2 cm (6' 6.03) 02/09/2025 12:51 PM C DT Body Mass Index 26.42 02/09/2025 12:51 PM CDT documented in this encounter Consult Notes * David Wagner M.D. - 02/09/2025 1:00 PM CDT SUBJECTIVE Patient's priority concerns: Headaches Goals for today: Discuss Botox for Migraines Daily frontal headaches, with 26/11 persistence. Average 4-6 pain scale day-to-day in the past month. For several years (2019 - 2024), he had maintained average pain score of 1-3 with non-pharmacologic regimen. Believes an upper respiratory illness about a month ago precipitated worsening of headaches. However, he has begun a vitamin detox in the past week which he believes has been helpful. Was also given a 5-day course of prednisone by an ED provider. Weight loss as he didn't feel like eating, down 15-20 lb over past month. Denies eye pain, vision loss, blurred vision, double vision, temporal/jaw pain or tenderness. No clear morning/evening tendency with headaches, but does note on a good night of sleep he feels improvement in headache by the morning. No associated nausea, light-sensitivity, sound sensitivity inthe past month. Cannot identify clear triggers. At times, notes dehydration and fried/processed foods appear to make symptoms worse, but not start a headache. He has maintained minimal headache burden through an extensive non-pharmacologic regimen lately. Regularly visits wellness centers, receives massage/acupuncture, green light, cold therapy. Finds peppermint oil helpful. Cefaly is helpful, uses this most days. IV magnesium, steroids have been helpful during recent ED visits. If he catches an early headache, excedrin migraine is helpful. Has tried triptans, topiramate, amitriptyline, without benefit. COVID messed up my biological clock, so sleep is poor. States that if he stays up until 3-4 AM, he is able to get a few hours of restful sleep. This results in notable improvement in headache in the morning. Trialed CPAP, couldn't find a tolerated mask so has not been treated. August 2020: Saw Dr. Markham - Following COVID infection Mar 2020, developed daily, bifrontal headaches - Dx w/ post-COVID headache - Tx: Topiramate tried for a couple weeks, not tolerated - Preventative, naproxen and rizatriptan PRN. October 2020: Dr. Agarwal, Botox scheduled but patient cancelled. Apr 2021 - May 2021: - Dr. Abad Mancia, sleep study completed, demonstrated mod-severe EDDIE Saw Dr. Todd ([facility]) 01/28/25 - Botox ordered; insurance authorization pending - [facility] ODT prescribed, has not tried Was started on tramadol (3x/day), which was helpful but did not like dizziness, nausea Alcohol 2-3 times per week, 1-2 beers per session. Denies tobacco/nicotine Tried marijuana in the past, not helpful for headaches. Has not used in some time. Medical History[1] Surgical History[2] Social Context: - Living situation: Independent in [place], [place] - Functional status: iADLs - Driving Yes, no concerns - Alcohol: 2-3 times per week, 1-2 drinks - Tobacco: Denies - Recreational substances: Denies - Denies concerns with accessing/affording care, medications, therapies. OBJECTIVE There were no vitals taken for this visit. There is no height or weight on file to calculate BMI. General: Comfortably resting in bed CV: RRR, no murmurs. No peripheral edema or discoloration. Pulm: Normal respiratory effort and oxygenation on room air. GI: Flat, non-tender to palpation Skin: No rashes/lesions on exposed areas NEUROLOGIC EXAMINATION MS: Alert, oriented to person, place time. Provides adequate history with appropriate detail. No appreciable receptive/expressive language deficits. CN: PERRL, EOMI without nystagmus. No visual field/acuity deficits. Face symmetric with intact sensation to touch. Hearing WNL. Speech non-dysarthric, with no tongue deviation. Motor: Strength 0,0 over deltoids, biceps, triceps, wrist flexors/extensors, finger flex/ex, hip flex/ex, knee flex/ex, ankle dorsiflexion, plantarflexion. Tone normal throughout, no tremors or abnormal movements. Sensory: Intact to touch and pinprick over face, UE/LE bilaterally. Reflex: DTR 0,0 over bicep, tricep, brachioradialis, patellae, achilles. Babinski downgoing bilaterally. No ankle clonus. Coordination: FTN, HTS without keyur dysmetria bilaterally. Gait: Steady, with appropriate base, clau, and stride length. No TTP over temporal arteries, TMJ, supraorbital musculature Reduced active/passive ROM with cervical spinal extension, flexion ASSESSMENT / PLAN 64 y/o R-handed man evaluated in neurology clinic for persistent headaches. He has previously been seen by neurology (2020) and treated with a brief trial of topiramate (not tolerated) and one round of Botox injections. Further workup at that time demonstrated moderate-severe sleep apnea He had remained stable with regards to headache frequency, characteristics, and intensity for several years using a regimen of non-pharmacologic therapies until one month ago. At this time, he had anupper respiratory infection (suspected viral), and has subsequently experienced persistent, but increased intensity of his headaches. His current headache (bifrontal, unremitting, pressure sensation) sounds most consistent with a chronic tension-type headache. In the past, he has mentioned migrainous features (photophobia, nausea),but denies these symptoms today. He does not recall perceiving benefit from triptans or ergots in the past. There does not appear to be any regular medication use which is contributing. He has no cervical spinal pain or clear focus of tenderness on examination today. I do suspect his previously diagnosed EDDIE (2020 moderate-severe, pAHI 16.9 events/hr, pRDI 17.8) without successful CPAP initiation is contributing, at least in part, to his daily headaches. We discussed this, and he is agreeable to revisiting this with a sleep study. We discussed the role of preventative medications, and he is reluctant to initiate TCA, which wouldbe the recommended first step. He has seen a neurologist in [place], who is able to provide Botox injections as soon as this . He is most interested in pursuing Botox, but is agreeable to revisiting sleep medicine workup and revisiting the utility of ongoing Botox versus pharmacologic therapy at that time. For now, we will defer repeat neuroimaging, and consider should symptoms worsenonce again. Will check ESR/CRP to ensure these are not persistently elevated, out of concern for GCA (low suspicion). # Persistent daily headache, with mixed migrainous and tension-type features # Obstructive sleep apnea, not on CPAP Next steps in testing: - Contact DME supplier to revisit CPAP. If repeat oxygen studies needed, he will contact PCP to arrange locally. - CBC, CRP, ESR today Symptom management: - Non-pharmacologic: - Continue cefaly, peppermint oil, massage, meditation as needed - Consider repeat CPAP evaluation/fitting - Pharmacologic: - Plans to pursue Botox injection - Consider TCA (amitriptyline, mirtazapine) as prophylactic if necessary despite treatment of EDDIE with CPAP This is a resident note. See note of supervising physician (Dr. Sanchez) associated with encounter. David Wagner MD Neurology PGY-2 [1] Past Medical History: Diagnosis Date Headache Unspecified Migraine Headache Other Injury Of Unspecified Body Region [2] Past Surgical History: Procedure Laterality Date FORAMINOTOMY N/A 08/09/2004 >Right C5 foraminotomy. LASER ABLATION N/A 03/12/2007 >Carbon dioxide laser ablation and excision of lesions. LASER ABLATION N/A 09/07/2008 >Laser ablation of right preauricular and submental nevi. NECK SURGERY nerve impingment NEVUS EXCISION N/A 08/25/2008 >CO2 laser-assisted excision of nevus right lateral brow and right posterior neck. ODONTECTOMY OF MAXILLARY 3RD MOLARS N/A 03/16/2008 >Odontectomy of tooth No. 12. OPEN REDUCTION INTERNAL FIXATION OF LEFORTE I FRACTURE N/A 11/25/2003 >Placement of IMF and open reduction and internal fixation of LeFort I fracture; closed reduction septal fracture. OTHER SURGICAL HISTORY PLACEMENT UNCOVERING AND HEALING ABUTMENT WITH ENDOSSEOUS IMPLANT N/A 08/31/2004 >CO2 laser-assisted uncovering of implant site 8. Healing abutment placement ([id number], [id number], abutment RP PLACEMENT UNCOVERING AND HEALING ABUTMENT WITH ENDOSSEOUS IMPLANT N/A 08/16/2008 >1. Endosseous implant reconstruction site 12 with a 4- x 13-mm Gregg III TiUnite implant. RECONSTRUCTION DENTAL DISCONTINUITY DEFECTS WITH ENDOSSEOUS IMPLANT N/A 03/23/2004 >Reconstruction site 8 with Gregg III TiUnite endosseous implant ([id number], [id number], [id number] RP 3.75x15, [place] Cosigned by Cedric Sanchez M.D. at 02/09/2025 3:36 PM CDT Associated attestation - Cedric Sanchez M.D. - 02/09/2025 3:36 PM CDT I have reviewed the history, examination, impression, and plan of care with Dr. Wagner and agree with the assessment. I have personally seen and evaluated the patient. Pleasant 64-year-old gentleman with chronic daily headaches along with long COVID symptoms when evaluated 1st at [place] in 2020 and diagnosed with post COVID headaches and chronic migraine and sibling found to have moderately severe obstructive sleep apnea. He has used a variety of nonpharmacologic strategies with modest benefit, generally with daily headaches ranging from 1 to 4/10 in intensity. He did not tolerate a CPAP trial. In the past month following an upper respiratory infection is headaches have become more intense prompting emergency department visits twice and occasional use of subsequent tramadol. Triptan if not helped in the past, and he has not tried the Nurtec and amitriptyline recently provided. He is not currently having nausea, vomiting, photophobia or phonophobia with his bilateral headaches. No jaw claudication. Neurologic examination normal. I thought his optic discs were sharp and flat and I could visualize faint spontaneous venous pulsations in the left eye. He has chronic daily headaches for several years previously with some migrainous features emerged following COVID infection and could be compounded by untreated obstructive sleep apnea. He should follow up to re-initiate CPAP treatment for obstructive sleep apnea. We will check inflammatory markersbut have a low suspicion for giant-cell arteritis. A [place] neurologists has scheduled him forBotox later this week, which he is interested in pursuing, and so he is not interested in adding any other acute or preventive medications at this time. documented in this encounter Plan of Treatment Scheduled Orders Name Type Priority Associated Diagnoses Orde r Schedule Sedimentation Rate Lab Routine New Daily Persistent Headache (NDPH) Headache Unspecified Expected: 02/09/2025, Expires: 05/12/2026 documented as of this encounter Results * (ABNORMAL) CBC with Differential, Blood (02/09/2025 3:06 PM CDT) Hemoglobin 14.6 13.2 - 16.6 g/dL 02/09/2025 3:44 PM CDT DTL Hematocrit 43.1 38.3 - 48.6 % 02/09/2025 3:44 PM CDT DTL Erythrocytes 4.72 4.35 - 5.65 x10(12)/L 02/09/2025 3:44 PM CDT DTL MCV 91.3 78.2 - 97.9 fL 02/09/2025 3:44 PM CDT DTL RBC Distrib Width 13.2 11.8 - 14.5 % 02/09/2025 3:44 PM CDT DTL Platelet Count 217 135 - 317 x10(9)/L 02/09/2025 3:44 PM CDT DTL Leukocytes 4.4 3.4 - 9.6 x10(9)/L 02/09/2025 3:44 PM CDT DTL Neutrophils 3.09 1.56 - 6.45 x10(9)/L 02/09/2025 3:43 PM CDT DHPM Lymphocytes 0.67(L) 0.95 - 3.07 x10(9)/L 02/09/2025 3:44 PM CDT DTL Monocytes 0.55 0.26 - 0.81 x10(9)/L 02/09/2025 3:44 PM CDT DTL Eosinophils 0.04 0.03 - 0.48 x10(9)/L 02/09/2025 3:44 PM CDT DTL Basophils 0.04 0.01 - 0.08 x10(9)/L 02/09/2025 3:44 PM CDT DTL Blood (Blood, Venous) 02/09/2025 3:06 PM CDT 02/09/2025 3:32 PM CDT David Wagner M.D. LAB BLOOD ADD-ON Final R esult [facility] [address] [place] [address], [facility] [address] [place] [address] [facility]3] [address] [place] [address] * CRP (C-Reactive Protein) (02/09/2025 3:06 PM CDT) C-Reactive Protein (CRP), S <3.0 <5.0 mg/L 02/09/2025 4:11 PM CDT DTL Blood (Blood, Venous) 02/09/2025 3:06 PM CDT 02/09/2025 3:33 PM CDT David Wagner M.D. LAB BLOOD ADD-ON Final R esult [facility] [address] [place] [address], [facility] [address] [place] [address] documented in this encounter Visit Diagnoses Diagnosis New Daily Persistent Headache (NDPH)- Primary Headache Unspecified Apnea Sleep Obstructive documented in this encounter Additional Health Concerns Assessment Noted Time PHQ-9 Depression Total Score: 3 01/11/20 21 12:13 PM CDT documented as of this encounter Care Teams Physics Instructor Relationship Specialty Start Date End Date Elsewhere, Pcp PCP - General Internal Medicine 02/09/25 documented as of this encounter
--- OUTSIDE RECORDS SUMMARY | 2025-02-09 14:54 | XMS_ITS | Encounter Summary ---
Author Organization [facility] Address [address] [place] [address] Care Team Providers Care Engraver Ornamental Design Name Role Phone Elsewhere, Pcp Primary Care Provider Unavailabl e Encounter Details Date Type Department Care Team (Latest Contact Info) Description 02/09/2025 2:54 PM CDT - 02/09/2025 11:59 PM CDT Hospital Encounter Department of Laboratory Medicine and Pathology, [place], [place] [address] [place] [address] David Wagner M.D. [address] [place] [address] New Daily Persistent Headache (NDPH) Discharge Disposition: Home or Self Care Social History Tobacco Use Types Packs/Day Years [...] place to sleep or slept in a long term (including now)? Yes 06/19/2021 Depression Answer Date Recor ded PHQ-9 Total Score (max 27) 3 01/10 Education Answer Date Recorded What is the highest level of school you have completed or the highest degree you have received? GED or equivalent Sex and Gender Information Value Date Recorded Sex Assigned at Male 04/04/2021 10:57 AM ENROLLED AGENT Legal Sex Male 5:17 PM ENROLLED AGENT Gender Identity Male 10/15/2017 8:11 AM CDT Sexual Orientation Straight 10/15/2017 8: 11 AM CDT Occupation Industry Job Start Date Job End Date Not on file Not on file Not on file Not on file documented as of this encounter Medications at Time of Discharge DME CPAPIndications:Ob structive Sleep Apnea Adult DME Order 1 each 05/25/2021 erythromycin (ROMYCIN) 5 mg/gram (0.5 %) ophthalmic ointment Apply 1 cm to right eye every 4 (four) hours while awake. 4 g 09/04/2022 traMADoL (Ultram) 50 mg tablet Take 50 mg by mouth as needed. 01/25/2025 documented as of this encounter Plan of Treatment Not on file documented as of this encounter Procedures Procedure Name Priority Date/Time Associated Diagnosis Comments CBC WITH DIFFERENTIAL, B Routine 02/09/2025 3:06 PM CDT New Daily Persistent Headache (NDPH) C-REACTIVE PROTEIN (CRP), S/P Routine 02/09/2025 3:06 PM CDT New Daily Persistent Headache (NDPH) documented in this encounter Results * (ABNORMAL) CBC with [...] M.D. LAB BLOOD ADD-ON Final R esult Performing Organization Address City/[facility]/ZIP Co de Phone Number [facility] [address] [place] [address], [facility] [address] [place], [place] [id number] [place] [address] [address] [place] [address] * CRP (C-Reactive Protein) (02/09/2025 3:06 PM CDT) C-Reactive Protein (CRP), S <3.0 <5.0 mg/L 02/09/2025 4:11 PM CDT DTL Blood (Blood, Venous) 02/09/2025 3:06 PM CDT 02/09/2025 3:33 PM CDT us David Wagner M.D. LAB BLOOD ADD-ON Final R esult Performing Organization Address City/[facility]/ZIP Co de Phone Number [facility] [address] [place] [address], [facility] [address] [place] [address] documented in this encounter Visit Diagnoses Diagnosis New Daily Persistent Headache (NDPH) documented in this encounter Additional Health Concerns Assessment Noted Time PHQ-9 Depression Total Score: 3 01/11/20 21 12:13 PM CDT documented as of this encounter Care Teams Engraver Ornamental Design Relationship Specialty Start Date End Date Elsewhere, Pcp PCP - General Internal Medicine 02/09/25 documented as of this encounter
--- OUTSIDE RECORDS SUMMARY | 2025-02-11 11:30 | XMS_ITS | Encounter Summary ---
Author Organization [facility] Address [address] [place] [id number] Care Team Providers Care Professor Of Forest Planning Name Role Phone Kallie Todd MD Unavailable [phone] Samuel Liu MD Primary Care Provider + Reason for Visit * Reason Comments Follow up Procedure * Other (Routine) - Authorized Specialty Diagnoses / Procedures Referred By Contac t Referred To Contact Diagnoses Intractable chronic migraine without aura and without status migrainosus Procedures MCN PROCEDURE APPOINTMENT INJECTION,ONABOTULINUMTOXINA Kallie Todd MD [address] [place] [address] Phone: tel: fax: Referral ID Status Reason Start Date Expiration Date V isits Requested Visits Authorized [id number] Authorized 01/28/2025 [id number] Encounter Details Date Type Department Care Team (Late st Contact Info) Description 02/11/2025 11:30 AM CDT Office Visit [facility] [address] [place] [phone] Kallie Todd MD [address] [place] [id number] Intractable chronic migraine without aura and without status migrainosus (Primary Dx) Social History Tobacco Use Types Packs/Day Years Used Date Smoking Tobacco: Never Smokeless Tobacco: Never Alcohol Use Standard Drinks/Week Comments Yes 3 (1 standard drink = 0.6 oz pur e alcohol) Jeffrey marx Sex and Gender Information Value Date Recorded Sex Assigned at Not on file Legal Sex Male 8:27 AM CDT Gender Identity Not on file Sexual Orientation Not on file documented as of this encounter Progress Notes * Kallie Todd MD - 02/11/2025 11:30 AM CDT Images from the original note were not included. Referring Provider: Kallie Todd* SUBJECTIVE History of Present Illness: Luis Carrington is a 64 y.o. male who is here for follow-up of chronic migraine headaches without aura. He was seen in initial consultation by this science writer on January 28, 2025 (please see the note from that date for further details regarding his history). Briefly, he has had chronic migraine headaches, which started after a COVID infection approximately 6 years ago. He has had daily migrainous headaches that fluctuate in severity throughout the day since that infection, which he describes as a frontal pressure that will build up and become a throbbing pain. When it is severe, he will have nausea, photophobia and phonophobia. His head may also feel hot to the touch with the headache but he do es not notice any flushing and he has not had any other cranial autonomic symptoms. He has tried several different medications and therapies over the years for headache management, as noted below. When he was last seen, he had wanted to undergo Botox therapy and a prior authorization was sent to his insurance. He plans to start the Botox therapy today. He was also given a prescription for Nurtec but it appears his insurance denied it. He had noted that he was also planning to see a specialist in [place], [place] to discuss possible bioccipital nerve decompression surgery to see if that would help with the headaches. It is noted that Campos did go back to [facility] on February 09, 2025 and saw neurology again for the headaches; he was seen there in 2020 for his symptoms. There was concern aboutpossible untreated obstructive sleep apnea contributing to his daily headaches and it was recommended that he complete a new sleep study, which was to be arranged with [facility]. They had discussed other p rophylactic medications for his headaches but he elected to follow through with the Botox therapy as scheduled today. He did have serum studies including a CRP and CBC, which were unremarkable. Today, he reports no significant changes with the headaches, noting that they still occur on a daily basis but they may be slightly less severe since starting magnesium, riboflavin and a few other vitamins and supplements, which were reportedly recommended by the plastic surgeon he saw in [place]. Hereports that he is not a candidate for the occipital nerve compression surgery at this point and ishoping the Botox therapy will be helpful, as he is reluctant to try daily medications for concerns of side effects. He states he did try the Ubrelvy once for a more severe headache, which was of questionable benefit. He still tries to limit the Tramadol use to a few days per week, if needed. He offers no new concerns or complaints. MIGRAINE MEDICATION HISTORY: Current Preventative(s): Botox (02/11/2025 - present) Prior Preventative(s): amitriptyline (ineffective); topiramate (ineffective) Current Rescue Meds: Tramadol, Cefaly device, Ubrelvy Prior Rescue Meds: oxycodone; rizatriptan/Maxalt (ineffective); zolmitriptan/Zomig (ineffective) Review of Systems: Remaining 10 point ROS is otherwise negative, unless stated above. PAST MEDICAL HISTORY Past Medical History: Diagnosis Date Migraine Restless leg syndrome Sensorineural hearing loss (SNHL) of both ears PAST SURGICAL HISTORY Past Surgical History: Procedure Laterality Date ARTHRD ANT INTERBODY DECOMPRESS CERVICAL BELW C2 2007 C5 FAMILY HISTORY No family history on file. SOCIAL HISTORY Social History Tobacco Use Smoking status: Never Smokeless tobacco: Never Substance Use Topics Alcohol use: Yes Alcohol/week: 3.0 - 4.0 standard drinks of alcohol Types: 3 - 4 Standard drinks or equivalent per week Comment: Jeffrey marx Drug use: Never ALLERGIES/SENSITIVITIES Allergies Allergen Reactions Escitalopram Other Reaction(s): Dizziness Penicillins Rash CURRENT MEDS Current Outpatient Medications: amitriptyline (ELAVIL) 25 mg oral tablet, Take 1 tablet (25 mg) by mouth. (Patient not taking: Reported on 01/28/2025), Disp: , Rfl: ketorolac (TORADOL) 10 mg oral tablet, Take 1 tablet (10 mg) by mouth. (Patient not taking: Reported on 01/28/2025), Disp: , Rfl: rimegepant (NURTEC ODT) 75 mg oral TbDL, Dissolve 1 tablet (75 mg) in mouth one time as needed. At onset of migraine headache. One dose per 24 hours and 18 days/months, Disp: 8 tablet, Rfl: 3 rizatriptan (MAXALT) 10 mg oral tablet, Take by mouth. (Patient not taking: Reported on 01/28/2025),Disp: , Rfl: traMADoL (ULTRAM) 50 mg oral tablet, , Disp: , Rfl: ubrogepant (UBRELVY) 100 mg oral Tab, 1 tablet at onset of migraine headache. May repeat in 2 hoursif needed. Max dose is 200mg in 24 hours., Disp: 10 tablet, Rfl: 3 ZOLMitriptan (ZOMIG) 5 mg oral tablet, Take 1 tablet (5 mg) by mouth. (Patient not taking: Reportedon 01/28/2025), Disp: , Rfl: OBJECTIVE Physical Exam: Vital Signs: There were no vitals taken for this visit. General: The patient is alert, cooperative, and not in acute distress. Neurologic Exam: Mental Status: Patient is alert with fluent speech. Orientation, memory, speech content, and cognitive function are intact. Cranial Nerves: CN II-XII are intact and symmetric Gait/Station: Normal stance and gait; no ataxia. Aid: [x]None [] Cane []Quad cane []Walker []Wheelchair []PMD Lab/Radiology/Diagnostics Review: Brain MRI with/without filippo, 09/04/2023 ([facility]) -no acute infarct, hemorrhage or mass. Normal brain parenchymal morphology and signal intensity. No hydrocephalus. No abnormal enhancement. 02/09/25 ([facility]) - CRP, CBC - normal [] I have personally reviewed images and my impression is above. [x] Images not available for personal review. Report documented above. Procedure: Neurotoxin (Botox) therapy Indication: Chronic migraine without aura Medication Used: Botulinum toxin type A (onabotulinumtoxin-A), 200 unit vial Dilution: 4mL/200 units of Botox, with a final concentration of 5 units per 0.1 mL (using preservative-free 0.9% sodium chloride injection, CORRECTION) Consent: Verbal and written consents were received from the patient after reviewing all potential risk and benefits of Botox injections. Procedure Note: The patient was prepped in the usual fashion with alcohol swabs. Using a 30-gauge, 0.5 inch needle, the following muscles were injected with botulinum toxin: Muscle Right Left EMG Comments Maintenance Mechanic Engine 5 5 Procerus 5 Units midline Frontalis 10 10 Temporalis 20 20 Occipitalis 15 15 Cervical Paraspinal 10 10 Trapezius 15 15 A total of 200 units of Botox were used: 155 units went to the patient and 45 units were wasted. Chemodenervation of the above muscles was achieved. The patient tolerated the procedure well, with minimal discomfort and no blood loss. Complications: None noted. Plan to continue with Botox injections every 12 weeks per the migraine protocol, as above, unless otherwise indicated ASSESSMENT/PLAN Luis Carrington is a 64 y.o. male with: Chronic migraine headaches without aura Plan to start Botox therapy today per the migraine protocol - he will continue this treatment every12 wks and he is cautioned that it may take 2-3 rounds of injections before he starts to notice significant improvement Agree with Sleep Medicine evaluation as untreated obstructive sleep apnea may also contribute to daily headaches - he is encouraged to follow through with the referral given to him at [facility] He is encouraged to continue to monitor his headaches, both in frequency and severity He should continue to limits OTC medications and Tramadol to no more than 3 days per week to avoid medication overuse and rebound headaches We reviewed he may continue to try the Ubrelvy for more severe headaches, if needed - maximum recommended dose is 200 mg/day and 8 days/month Follow-up: 12 wks w/ Botox injections Kallie Todd MD Board Certified in Neurology [facility] Neurology ENCOUNTER I spent 26 minutes on the date of the encounter [...] and/or procedures, and documenting in the chart. This time does not include the time spent on injection procedures. VibeSec Edition One (Loop Survey.) speech recognition conference coordinator software was used to create portions of this document. Minor errors in conference coordinator may be present.Please call with questions. 2024 Documentation of current medications reviewed every visit 2. Does patient use tobacco? No documented in this encounter Plan of Treatment Not on file documented as of this encounter Visit Diagnoses Diagnosis Intractable chronic migraine without aura and without status migrainosus- Primary Chronic migraine without aura, with intractable migraine, so stated, without mention of status migrainosus documented in this encounter Administered Medications Inactive Administered Medications - up to 3 most recent administrations Medication Order MAR Action Action Date Dose Rate Site onabotulinumtoxinA (Botox) injection 200 Units 200 Units, IntraMUSCULAR, ONCE, 1 dose, On Cristiana 02/11/25 at 1200Indications:Intractable chronic migraine without aura and without status migrainosus Given 02/11/2025 11:52 AM CDT 155 Units Procedural documented in this encounter Care Teams Professor Of Forest Planning Relationship Specialty Start Date End Date Samuel Liu MD [address] [place] [address] PCP - General Family Medicine 01/28/25 Kallie Todd MD [address] [place] [address] Neurology 01/19/25 documented as of this encounter
--- OUTSIDE RECORDS SUMMARY | 2025-02-12 23:45 | XMS_ITS | Encounter Summary ---
Author Organization [facility] Address [address] [place] [address] Care Team Providers Care Fabric Cutter Name Role Phone Elsewhere, Pcp Primary Care Provider Unavailabl e Reason for Visit * Reason Comments Finger Injury Patient presents wit h a L middle finger injury. He states that a tire fell on it around 1730 tonight and wasn't close to an ER. Encounter Details Date Type Department Care Team (Late st Contact Info) Description 02/12/2025 11:45 PM CDT - 02/13/2025 1:00 AM CDT [facility] [address] [place] [phone] Willem Tsang M.D. [address] [place] [phone] Crushing Injury Left Middle Finger Initial (Primary Dx); Laceration Without Foreign Body Left Middle Finger Without Damage To Nail Initial Discharge Disposition: Home or Self Care Social [...] place to sleep or slept in a penitentiary (including now)? Yes 06/19/2021 Depression Answer Date Recor ded PHQ-9 Total Score (max 27) 3 01/10 Education Answer Date Recorded What is the highest level of school you have completed or the highest degree you have received? GED or equivalent Sex and Gender Information Value Date Recorded Sex Assigned at Male 04/04/2021 10:57 AM LINUX SUPPORT ENGINEER Legal Sex Male 5:17 PM LINUX SUPPORT ENGINEER Gender Identity Male 10/15/2017 8:11 AM CDT Sexual Orientation Straight 10/15/2017 8: 11 AM CDT Occupation Industry Job Start Date Job End Date Not on file Not on file Not on file Not on file documented as of this encounter Last Filed Vital Signs Vital Sign Reading Time Taken Comments Blood Pressure 138/91 02/13/2025 12:57 AM CDT Pulse 56 02/13/2025 12:57 AM CDT Temperature 36.2 C (97.2 F) 02/12/2025 11:45 PM CDT Respiratory Rate 20 02/13/2025 12:57 AM CDT Oxygen Saturation 96% 02/13/2025 12:57 AM CDT Inhaled Oxygen Concentration - - Weight 104 kg (228 lb 6.4 oz) 02/12/2025 11:51 P M CDT Height - - Body Mass Index 26.37 02/09/2025 12:51 PM CDT documented in this encounter Discharge Instructions * Attachments The following attachments cannot be sent through Care Everywhere. * How to Care for Your Wound Closed with Skin Glue (Divehi) * Laceration Care Adult (Divehi) documented in this encounter Medications at Time of Discharge clindamycin (Cleocin) 150 mg capsuleIndicatio ns:Laceration Without Foreign Body Left Middle Finger Without Damage To Nail Initial Take 3 capsules (450 mg total) by mouth every 8 (eight) hours for 3 days. 30 capsule 02/13/2025 02/16/2025 DME CPAPIndications: Obstructive Sleep Apnea Adult DME Order 1 each 05/25/2021 erythromycin (ROMYCIN) 5 mg/gram (0.5 %) ophthalmic ointment Apply 1 cm to right eye every 4 (four) hours while awake. 4 g 09/04/2022 traMADoL (Ultram) 50 mg tablet Take 50 mg by mouth as needed. 01/25/2025 documented as of this encounter ED Notes * Willem Tsang M.D. - 02/13/2025 12:28 AM CDT CHIEF COMPLAINT/REASON FOR VISIT (RN note) Finger Injury (Patient presents with a L middle finger injury. He states that a tire fell on it around 1730 tonight and wasn't close to an ER. ) HISTORY OF PRESENT ILLNESS Luis Carrington is a 64 y.o. male who presents to the ED for evaluation of finger injury. Hisleft middle finger was smashed between the rim of a very large industrial tire in the large trailer. He was trying to change a tire on the side of the road when this happened at around 6:00 p.m.. He was driving home from [place] so he did not stop prior to coming into the emergency department here. His last tetanus vaccination was June 2024. He notes that every time he bumps it, it continues to bleed from a very small laceration to the distal part of his left middle finger. Aidee also present and assists with history as an independent historian. Past medical history: Reviewed in the EMR. Agree with nursing documentation. Pertinent past medicalhistory noted per HPI. Medical History[1] Patient Active Problem List Diagnosis Date Noted Pneumonia 03/20/2020 Pneumonia Due To COVID-19 03/20/2020 Family History[2] Social history: Reviewed in the EMR. Agree with nursing documentation. Pertinent social history noted per HPI. Social History[3] REVIEW OF SYSTEMS Constitutional: As noted in the HPI, otherwise negative. Eyes: As noted in the HPI, otherwise negative. HEENT: As noted in the HPI, otherwise negative. CV: As noted in the HPI, otherwise negative. Resp: As noted in the HPI, otherwise negative. GI: As noted in the HPI, otherwise negative. : As noted in the HPI, otherwise negative. MSK: As noted in the HPI, otherwise negative. Skin: As noted in the HPI, otherwise negative. Neuro: As noted in the HPI, otherwise negative. PHYSICAL EXAMINATION Initial Vitals Temperature 02/12/25 2345 36.2 ??C Pulse Rate 02/12/25 2345 (!) 53 Heart Rate -- Resp Rate 02/13/25 0057 20 Blood Pressure 02/12/25 2345 (!) 144/99 SpO2 02/12/25 2345 97 % Pain Score 02/12/25 2345 3 General: Awake, alert, oriented x3. No apparent distress. Elevated blood pressure noted. Head: Normocephalic, atraumatic. Eyes: Normal sclerae and conjunctivae, extraocular movements intact. ENT: Oropharynx is clear, moist mucus membranes. Neck: Supple, full range of motion, trachea midline. Heart: Normal rate. Lungs: No respiratory distress. Ext: Warm, well-perfused. 1 cm curvilinear laceration to the distal tip of the left middle finger.No active bleeding and no injury to the fingernail. Skin: Warm, dry, normal color. Please see extremity exam above. Neuro: Awake, alert, GCS 15, cranial nerves II-XII grossly intact, normal strength/sensation x4 without focal deficits. Psych: Normal affect, concentration, and judgment. MEDICAL DECISION MAKING / ED COURSE: 64-year-old man comes to the emergency department with left finger injury. Fortunately, x-ray negative for fracture. He had not cleaned it prior to coming to the emergency department approximately 6 hours after the injury so it was soaked in chlorhexidine solution here and cleaned showing a laceration to the tip of the left middle finger. Discussed the options to repair it with sutures, skin glue, or leave it and use Neosporin and Band-Aids as it is not actively bleeding. He elected for skin glue which I think is reasonable and because it has been open for the last 6 hours and came from a dirty environment, I have recommended three days of clindamycin for prophylaxis. We discussed signs and symptoms of flexor tenosynovitis and reasons to return to the emergency department immediately. He will follow up in primary care as needed. -- Aidee assists as an independent historian. -- Factors complicating medical decision-making: Delayed presentation for medical treatment. -- Nursing documentation and prior records reviewed in the medical record. -- External documents reviewed. -- I personally reviewed by visualization, interpreted, and discussed with the patient the results of imaging studies as reported in the medical record. FINAL DIAGNOSIS: 1. Crushing Injury Left Middle Finger Initial 2. Laceration Without Foreign Body Left Middle Finger Without Damage To Nail Initial ED Prescriptions Medication Sig Dispense Start Date End Date Auth. Provider clindamycin (Cleocin) 150 mg capsule Take 3 capsules (450 mg total) by mouth every 8 (eight) hours for 3 days. 30 capsule 02/13/2025 02/16/2025 Willem Tsang M.D. DIAGNOSTIC RESULTS DX Fingers Left 2+ Views Final Result No evidence of an acute fracture. No dislocation. Notes are completed with voice recognition dictation software. [1] Past Medical History: Diagnosis Date Headache Unspecified Migraine Headache Other Injury Of Unspecified Body Region [2] No family history on file. [3] Social History Tobacco Use Smoking status: Never Passive exposure: Never Smokeless tobacco: Never Vaping Use Vaping status: never used Substance Use Topics Alcohol use: Yes Alcohol/week: 3.0 standard drinks of alcohol Types: 3 Cans of beer per week Drug use: Never Willem Tsang M.D. 02/13/25 0058 documented in this encounter Plan of Treatment Not on file documented as of this encounter Procedures Procedure Name Priority Date/Time Associated Diagnosis Comments DX FINGERS LEFT 2+ VIEWS RAD - Semiurgent (Fast; most ED patients; some inpatients) 02/13/2025 12:14 AM CDT documented in this encounter Results * DX Fingers Left 2+ Views (02/13/2025 12:14 AM CDT) Anatomical Region Laterality Modality Upper Extremity, Fingers, Mu sculoskeletal RST LOS, Musculoskeletal ARZ LOS, Muskuloskeletal FLA LOS Left Digit al Radiography Impressions 02/13/2025 12:15 AM CDT No evidence of an acute fracture. No dislocation. Narrative 02/13/2025 12:15 AM CDT EXAM: DX FINGERS LEFT 2+ VIEWS Procedure Note Pratima Alvares M.D. - 02/13/2025 EXAM: DX FINGERS LEFT 2+ VIEWS IMPRESSION: No evidence of an acute fracture. No dislocation. Willem Tsang M.D. IM DIAGNOSTIC IMAGING PROC EDURES Final Result documented in this encounter Visit Diagnoses Diagnosis Crushing Injury Left Middle Finger Initial- Primary Laceration Without Foreign Body Left Middle Finger Without Damage To Nail Initial documented in this encounter Additional Health Concerns Assessment Noted Time PHQ-9 Depression Total Score: 3 01/11/20 21 12:13 PM CDT documented as of this encounter Care Teams Fabric Cutter Relationship Specialty Start Date End Date Elsewhere, Pcp PCP - General Internal Medicine 02/09/25 documented as of this encounter
--- OUTSIDE RECORDS SUMMARY | 2025-02-16 03:17 | XMS_ITS | Encounter Summary ---
Author Organization [facility] Address [address] [place] [address] Care Team Providers Care Venetian Blind Cleaner Name Role Phone Elsewhere, Pcp Primary Care Provider Unavailabl e Encounter Details Date Type Department Care Team (Late st Contact Info) Description 02/11/2025 Results Follow-Up Department of Neurology in [place], [place] [address] [place] [address] David Wagner M.D. [address] [place] [address] CRP (C-Reactive Protein), CBC with Differential, Blood Social History Tobacco Use Types Packs/Day Years [...] place to sleep or slept in a longterm (including now)? Yes 06/19/2021 Depression Answer Date Recor ded PHQ-9 Total Score (max 27) 3 01/10 Education Answer Date Recorded What is the highest level of school you have completed or the highest degree you have received? GED or equivalent Sex and Gender Information Value Date Recorded Sex Assigned at Male 04/04/2021 10:57 AM FLOW MANAGER Legal Sex Male 5:17 PM FLOW MANAGER Gender Identity Male 10/15/2017 8:11 AM CDT [...] documented as of this encounter Care Teams Venetian Blind Cleaner Relationship Specialty Start Date End Date Elsewhere, Pcp PCP - General Internal Medicine 02/09/25 documented as of this encounter
--- OUTSIDE RECORDS SUMMARY | 2025-02-16 03:17 | XMS_ITS | Encounter Summary ---
Author Organization [facility] Address [address] [place] [address] Care Team Providers Care Historic Clothing And Costume Maker Name Role Phone Kallie Todd MD Unavailable [phone] Samuel Liu MD Primary Care Provider + Encounter Details Date Type Department Care Team (Late st Contact Info) Description 02/01/2025 Community Care Management [facility] [address] [place] [id number] [address] [place] Social History Tobacco Use Types Packs/Day Years [...] Diagnoses Not on filedocumented in this encounter Care Teams Historic Clothing And Costume Maker Relationship Specialty Start Date End Date Samuel Liu MD [address] [place] [address] PCP - General Family Medicine 01/28/25 Kallie Todd MD [address] [place] [address] Neurology 01/19/25 documented as of this encounter
--- OUTSIDE RECORDS SUMMARY | 2025-02-16 03:17 | XMS_ITS | Clinical Summary ---
Author Organization [facility] Address [address], [place] [address] Care Team Providers Care Webbing Seamer Pound Net Name Role Phone Clinician, Not Found MD Primary Care Provider Un available Source Comments You are receiving this document as you are listed as the primary care provider,follow-up provider, or the patient has been referred to you for consultation.This is in compliance with the Medicare and[facility] E[facility] Incentive Program,which states Providers who [...] on file Legal Sex Male 4:55 PM ENROLLMENT MANAGEMENT COORDINATOR Gender Identity Not on file Sexual Orientation Not on file Last Filed Vital Signs Vital Sign Reading Time Taken Comments Blood Pressure - - Pulse - - Temperature - - Respiratory Rate - - Oxygen Saturation - - Inhaled Oxygen Concentration - - Weight 107 kg (236 lb) 07/02/2017 11:17 AM ENROLLMENT MANAGEMENT COORDINATOR Height 198.1 cm (6' 6) 07/02/2017 11:17 AM ENROLLMENT MANAGEMENT COORDINATOR Body Mass Index 27.27 07/02/2017 11:17 AM ENROLLMENT MANAGEMENT COORDINATOR Plan of Treatment Health Maintenance Due Date [...] patient's age to complete this topic Insurance [facility] Care Teams Webbing Seamer Pound Net Relationship Specialty Start Date End Date Clinician, Not Found, [place] [address] PCP - General 03/17/24
--- OUTSIDE RECORDS SUMMARY | 2025-02-16 03:17 | XMS_ITS | Clinical Summary ---
Author Organization [facility] Address [address] [place] [address] Care Team Providers Care Straight Knife Cutter Machine Name Role Phone Elsewhere, Pcp Primary Care Provider Unavailabl e Source Comments Patient records contain information from all sites at [facility]. For routine questions regarding patient records, call [phone] during business hours, M-F 8:00 AM - 5:00 PM Central Time. Record requests for emergency care only can be directed to [phone] at any time.[facility] Allergies Active Allergy Reactions Criticality Noted Date Comments Amoxicillin Rash Medium 03/07/2015 Escitalopram Other (see comments) High 07/18/2020 Penicillins Rash Medium 09/11/2017 Medications * This document contains information received from the source organization and may not represent a complete record from that organization. DME CPAPIndication s:Obstructive Sleep Apnea Adult DME Order 1 each 2 Active erythromycin (ROMYCIN) 5 mg/gram (0.5 %) ophthalmic ointment Apply 1 cm to right eye every 4 (four) hours while awake. 4 g 3 Active Additional Information Patient taking differently:1 cm right eyeAs needed, Reported on 02/12/2025 traMADoL (Ultram) 50 mg tablet Take 50 mg by mouth as needed. 5 Active clindamycin (Cleocin) 150 mg capsuleIndicat ions:Laceratio n Without Foreign Body Left Middle Finger Without Damage To Nail Initial Take 3 capsules (450 mg total) by mouth every 8 (eight) hours for 3 days. 30 capsule 10/11/202 5 02/17/20 25 Active rOPINIRole (for_REQUIP) 1 mg tablet Take 1 tablet by mouth at bedtime. 5 02/04/20 25 Discontin ued(Thera py completed ) diclofenac sodium (VOLTAREN) 75 mg EC tablet Take 75 mg by mouth daily. 1 02/04/20 25 Discontin ued(Thera py completed ) betamethasone dipropionate, augmented, (DIPROLENE) 0.05 % ointment Apply 1 application topically as needed. 02/04/20 25 Discontin ued(Thera py completed ) UNABLE TO FIND Take by mouth at bedtime. Med Name: Barkcramp 1 ml by mouth every bedtime. Patient reports taking for restless leg management. 02/04/20 25 Discontin ued(Thera py completed ) ketorolac (ACULAR) 0.5 % ophthalmic solution Administer 1 drop into the right eye 4 (four) times a day as needed (pain). 5 mL 3 02/04/20 25 Discontin ued(Thera py completed ) Active Problems Problem Noted Date Diagnosed Date Pneumonia 03/20/2020 Pneumonia Due To COVID-19 03/20/2020 Encounters Date Type Department Care Team Description 02/12/2025 11:45 PM CDT - 02/13/2025 1:00 AM CDT Emergency [facility] [address] [place] [address] Willem Tsang M.D. Crushing Injury Left Middle Finger Initial (Primary Dx); Laceration Without Foreign Body Left Middle Finger Without Damage To Nail Initial Discharge Disposition: Home or Self Care 02/11/2025 Results Follow-Up Department of Neurology in [place], [place] [address] [place] [id number] David Wagner M.D. CRP (C-Reactive Protein), CBC with Differential, Blood 02/09/2025 2:54 PM CDT - 02/09/2025 11:59 PM CDT Hospital Encounter Department of Laboratory Medicine and Pathology, [facility], in [place], [place] [address] [place] [phone] David Wagner M.D. New Daily Persistent Headache (NDPH) Discharge Disposition: Home or Self Care 02/09/2025 1:00 PM CDT Comprehensive Visit Department of Neurology in [place], [place] [address] [place] [address] Cedric Sanchez M.D. New Daily Persistent Headache (NDPH) (Primary Dx); Headache Unspecified; Apnea Sleep Obstructive 02/03/2025 8:15 AM CDT Clinical Communication Virtual Review in [place], [place] [address] [place] [address] Pre-visit Intake from Last 3 Months Immunizations Immunization Administration Dates Next Due Td (Adult), adsorbed 10/18/2005 Tdap 03/10/2015,05/06/2013 influenza trivalent vaccine (6 months and older) (PF) 08/08/2015 Social History Tobacco Use Types Packs/Day Years [...] place to sleep or slept in a usp (including now)? Yes 06/19/2021 Depression Answer Date Recor ded PHQ-9 Total Score (max 27) 3 01/10 Education Answer Date Recorded What is the highest level of school you have completed or the highest degree you have received? GED or equivalent Sex and Gender Information Value Date Recorded Sex Assigned at Male 04/04/2021 10:57 AM MACHINE HOOP MAKER Legal Sex Male 5:17 PM MACHINE HOOP MAKER Gender Identity Male 10/15/2017 8:11 AM CDT Sexual Orientation Straight 10/15/2017 8: 11 AM CDT Occupation Industry Job Start Date Job End Date Not on file Not on file Not on file Not on file Last Filed Vital Signs [...] oz) 02/12/2025 11:51 P M CDT Height 198.2 cm (6' 6.03) 02/09/2025 12:51 PM C DT Body Mass Index 26.37 02/09/2025 12:51 PM CDT Plan of Treatment Health Maintenance Due Date Last Done Comments CT Colonography 1962 Cologuard 1962 FIT 1962 HIV Screening 1962 Hepatitis C Screening 1962 Pneumococcal vaccine (50+ years) (1 of 1 - PCV) 2012 Zoster Vaccines (1 of 2) 2012 Lipid (Cholesterol) Screening 06/26/2022 06/26/2017 (Performed elsewhere) Fasting Glucose for Diabetes Screening 03/24/2023 03/24/2020, 03/22/2020, 03/21/2020, Additional history exists Colonoscopy 03/15/2024 03/15/2014, 2013 Colorectal Cancer Screening 03/15/2024 Depression Screening (Annual PHQ-2) 05/06/2024 COVID-19 Vaccine ( - season) 2025 01/11/2021, 12/15/2020 Influenza Vaccine (#1) 2025 08/08/2015 DTaP,Tdap,and Td Vaccines (4 - Td or Tdap) 06/29/2034 06/29/2024, 03/10/2015, 05/06/2013, Additional history exists IPV Vaccines Aged Out No longer eligi ble based on patient's age to complete this topic Medical Devices Implanted Type Area Buyer Broker Device Identifier Shelf Expiration Date Model / Serial / Lot Osteomed-Screw Emerg 1.9x4 - [place] [id number] Implanted:Qty: 1 on 11/25/2003 Hardware e.g. pins/screws/r ods [employer] Description:Device Manufactu rer - [employer]. Device Status Text - [id number]. Osteomed-Plate Midface 4 Hole Str - [place] [id number] Implanted:Qty: 1 on 11/25/2003 Hardware e.g. pins/screws/r ods [employer] Description:Device Manufactu rer - [employer]. Device Status Text - [id number]. Osteomed-Plate Midface 10 Hole Str - [place] [id number] Implanted:Qty: 1 on 11/25/2003 Hardware e.g. pins/screws/r ods [employer] Description:Device Manufactu rer - [employer]. Device Status Text - [id number]. Osteomed-Plate Midface 10 Hole Curved - [place] [id number] Implanted:Qty: 1 on 11/25/2003 Hardware e.g. pins/screws/r ods [employer] Description:Device Manufactu rer - [employer]. Device Status Text - [id number]. Osteomed-Screw Auto-Drive 1.6 X 5 - [place] [id number] Implanted:Qty: 20 on 11/25/2003 Hardware e.g. pins/screws/r ods [employer] Description:Device Manufactu rer - [employer]. Device Status Text - [id number]. Osteomed-Plate L Midface 13mm Rt - [place] [id number] Implanted:Qty: 1 on 11/25/2003 Hardware e.g. pins/screws/r ods [employer] Description:Device Manufactu rer - [employer]. Device Status Text - [id number]. Abutment Complete 3mm - [place] [id number] Implanted:Qty: 1 on 03/23/2004 Hardware e.g. pins/screws/r ods Other/Legacy - See Implant Description Description:Device Manufactu rer - [employer]. Device Status Text - [id number]. Screw Mk3 Jayla Rp 3.75x15.00 - [place] [id number] Implanted:Qty: 1 on 03/23/2004 Hardware e.g. pins/screws/r ods [employer] Description:Device Manufactu rer - [employer]. Device Status Text - [id number]. Abut Dc By Comp Rp 5x4mm Dc - [place] [id number] Implanted:Qty: 1 on 08/31/2004 Hardware e.g. pins/screws/r ods [employer] Description:Device Manufactu rer - [employer]. Device Status Text - [id number]. Abutment Complete 3mm - [place] [id number] Implanted:Qty: 1 on 08/31/2004 Hardware e.g. pins/screws/r ods Other/Legacy - See Implant Description Description:Device Manufactu rer - [employer]. Device Status Text - [id number]. Screw Mk3 Jayla Rp 4.00x13.0 - Chiang [id number] Implanted:Qty: 1 on 08/16/2008 Hardware e.g. pins/screws/r ods Tooth [employer] Description:Device Manufactu rer - [employer]. Body Location - Tooth 12. Device Status Text - [id number]. Brane Abutment Healing Rp 5.0x3.0 - [place]ang [id number] Implanted:Qty: 1 on 08/16/2008 Hardware e.g. pins/screws/r ods Tooth [employer] Description:Device Manufactu rer - [employer]. Body Location - Tooth 12. Device Status Text - [id number]. Scrw Brnmk Rp 4.0x11.5 - [id number] Implanted:Qty: 1 on 12/10/2018 at [facility] Hardware e.g. pins/screws/r ods Mouth [employer] 04/12/2023 [id number] / / [id number] Description:4x11.5 in site 1 3 Abtmnt Hl Brnmk Rp 5 X 3 - [id number] Implanted:Qty: 1 on 12/10/2018 at [facility] Hardware e.g. pins/screws/r ods Mouth [employer] 07/10/2021 [id number] / / [id number] Description:5x3 in site 13 Cover Screw W Int Hex Rp Keerthi B - [place] [id number] Implanted:Qty: 1 on 03/23/2004 Misc Prosthesis [employer] Description:Device Manufactu rer - [employer]. Device Status Text - MISC [id number]. Procedures Procedure Name Priority Date/Time Associated Diagnosis Comments DX FINGERS LEFT 2+ VIEWS RAD - Semiurgent (Fast; most ED patients; some inpatients) 02/13/2025 12:14 AM CDT CBC WITH DIFFERENTIAL, B Routine 02/09/2025 3:06 PM CDT New Daily Persistent Headache (NDPH) C-REACTIVE PROTEIN (CRP), S/P Routine 02/09/2025 3:06 PM CDT New Daily Persistent Headache (NDPH) BASIC METABOLIC PANEL, S/P Routine 03/24/2020 6:36 AM MACHINE HOOP MAKER from Last 3 Months or Most Recently Relevant to Health Maintenance Results * DX Fingers Left 2+ Views [...] acute fracture. No dislocation. Willem Tsang M.D. [facility] DIAGNOSTIC IMAGING PROC EDURES Final Result * (ABNORMAL) CBC with Differential, Blood (02/09/2025 [...] ADD-ON Final R esult Performing Organization Address City/[facility] Co de Phone Number [facility] [address] [facility] [address] [place] [address] * CRP (C-Reactive Protein) (02/09/2025 3:06 PM CDT) C-Reactive Protein (CRP), S <3.0 <5.0 mg/L 02/09/2025 4:11 PM CDT DTL Blood (Blood, Venous) 02/09/2025 3:06 PM CDT 02/09/2025 3:33 PM CDT David Wagner M.D. LAB BLOOD ADD-ON Final R esult Performing Organization Address City/[facility] Co de Phone Number [facility] [address] [place] [address] * Basic Metabolic Panel (03/24/2020 6:36 AM MACHINE HOOP MAKER) Potassium, P 4.0 3.6 - 5.2 mmol/L 03/24/2020 7:29 AM MACHINE HOOP MAKER AUST Sodium, P 138 135 - 145 mmol/L 03/24/2020 7:29 AM MACHINE HOOP MAKER AUST Chloride, P 104 98 - 107 mmol/L 03/24/2020 7:29 AM MACHINE HOOP MAKER AUST Bicarbonate, P 27 22 - 29 mmol/L 03/24/2020 7:29 AM MACHINE HOOP MAKER AUST Anion Gap, P 7 7 - 15 03/24/2020 7:29 AM MACHINE HOOP MAKER AUST BUN (Blood Urea Nitrogen), P 23 8 - 24 mg/dL 03/24/2020 7:29 AM MACHINE HOOP MAKER AUST Creatinine 0.86 0.74 - 1.35 mg/dL 03/24/2020 7:29 AM MACHINE HOOP MAKER AUST eGFR-Black/Afric an Iranian >90 >=60 mL/min/BSA 03/24/2020 7:29 AM MACHINE HOOP MAKER AUST Comment: ----ADDITIONAL INFORMATION---- Estimated GFR calculated using the 2009 CKD_EPI creatinine equation. eGFR Non-Black/Mayi n Iranian >90 >=60 mL/min/BSA 03/24/2020 7:29 AM MACHINE HOOP MAKER AUST Comment: ----ADDITIONAL INFORMATION---- Estimated GFR calculated using the 2009 CKD_EPI creatinine equation. Calcium, Total, P 9.0 8.6 - 10.0 mg/dL 03/24/2020 7:29 AM MACHINE HOOP MAKER AUST Glucose, P 92 70 - 140 mg/dL 03/24/2020 7:29 AM MACHINE HOOP MAKER AUST Blood (Blood, Venous) 03/24/2020 6:36 AM MACHINE HOOP MAKER 03/24/2020 7:00 AM MACHINE HOOP MAKER Diamante aPlm M.D. LAB BLOOD ADD-ON Final Result [facility] [address] [place] [address], [facility] [address] [place] [address] from Last 3 Months or Most Recently Relevant to Health Maintenance Insurance [facility] Advance Directives For more information, please contact: [phone] * Full Code (Latest Code Status on File) Date Activated Date Inactivated Comments 03/20/2020 3:03 PM 03/24/2020 7:46 PM Question Answer Comments Full Code: Discussed Care Teams Straight Knife Cutter Machine Relationship Specialty Start Date End Date Elsewhere, Pcp PCP - General Internal Medicine 02/09/25
--- OUTSIDE RECORDS SUMMARY | 2025-02-16 03:17 | XMS_ITS | Clinical Summary ---
Author Organization [facility] Address [address] [place] [address] Care Team Providers Care Mason Helper Name Role Phone Kallie Todd MD Unavailable + [phone] Samuel Liu MD Primary Care Provider + Allergies Active Allergy Reactions Criticality Noted Date Comments Escitalopram High 01/17/2025 Other Reaction(s): Dizziness Penicillins Rash Medium 07/03/2010 Medications ZOLMitriptan (ZOMIG) 5 mg oral tablet Take 1 tablet (5 mg) by mouth. 5 Active traMADoL (ULTRAM) 50 mg oral tablet 5 Active rizatriptan (MAXALT) 10 mg oral tablet Take by mouth. 5 Active ketorolac (TORADOL) 10 mg oral tablet Take 1 tablet (10 mg) by mouth. 5 Active amitriptyline (ELAVIL) 25 mg oral tablet Take 1 tablet (25 mg) by mouth. 5 Active rimegepant (NURTEC ODT) 75 mg oral TbDLIndications: Intractable chronic migraine without aura and without status migrainosus Dissolve 1 tablet (75 mg) in mouth one time as needed. At onset of migraine headache. One dose per 24 hours and 18 days/months 8 tablet 3 5 Active ubrogepant (UBRELVY) 100 mg oral TabIndications:I ntractable chronic migraine without aura and without status migrainosus 1 tablet at onset of migraine headache. May repeat in 2 hours if needed. Max dose is 200mg in 24 hours. 10 tablet 3 Active Hospital, Clinic, or Other Facility Administered Medication Ordered Dose Route Frequency Start Date End Date Status onabotulinumtoxinA (Botox) injection 200 UnitsIndications:Intractabl e chronic migraine without aura and without status migrainosus 200 Units IM ONCE 02/11/2025 02/11/2025 Ended Active Problems Problem Noted Date Diagnosed Date BPH (benign prostatic hyperplasia) 01/28/2025 Chronic migraine without aura 01/28/2025 Diarrhea 01/28/2025 Migraines 01/28/2025 Tinnitus 01/28/2025 Pneumonia due to COVID-19 virus 03/20/2020 Obstructive sleep apnea 09/19/2017 Adenomatous polyp of colon 03/15/2014 Overview (01/28/2025): x2 on 03/15/14 colonoscopy, 5Y repeat. Elevated prostate specific antigen (PSA) 014 Overview (01/28/2025): 6.84 on 11/16/19 NH&C labs. has had bx in past Restless legs syndrome 03/31/2011 [place] fracture 11/25/2003 Overview (01/28/2025): ORIF 11/25/03 w/ f/u procedures Encounters Date Type Department Care Team Description 02/11/2025 11:30 AM CDT Office Visit [facility] [place] [address] [place] [address] Kallie Todd MD Intractable chronic migraine without aura and without status migrainosus (Primary Dx) 02/01/2025 Community Care Management [facility] [address] [place] [id number] She Hughes 01/28/2025 10:30 AM CDT Office Visit [facility] [place] [address] [place] [address] Kallie Todd MD Intractable chronic migraine without aura and without status migrainosus (Primary Dx) from Last 3 Months Social History Tobacco Use Types Packs/Day Years [...] on file Sexual Orientation Not on file Plan of Treatment Health Maintenance Due Date Last Done Comments Colonoscopy 1962 Hepatitis C Screening 1962 Lipid Screening 1962 Anxiety Screening (FRANCA-2) 1963 Depression Assessment (PHQ-2) 1963 Pneumococcal 50+ Years (1 of 1 - PCV) 2012 Yearly Review of HCD 2012 Zoster Vaccine (1 of 2) 2012 RSV Vaccines (1 - Risk 60-74 years 1-dose series) 2022 COVID-19 Vaccine (3 - 2024- season) 2025 01/11/2021, 12/15/2020 Influenza Vaccine (#1) 2025 08/08/2015 Adult Tetanus Booster 06/29/2034 06/29/2024 , 03/10/2015, 05/06/2013, Additional history exists Meningococcal B Vaccine Aged Out No l onger eligible based on patient's age to complete this topic Insurance [facility] Member Subscriber Plan / Payer (Ef fective 2025-Present) Name:Luis Carrington Relation to Subscriber:Self Name:Luis Carrington Payer ID:[id number] (NAIC) [id number] Type:[facility] Address: [address] [address] Care Teams Mason Helper Relationship Specialty Start Date End Date Samuel Liu MD 1977 [address] [place] [place] [address] PCP - General Family Medicine 01/28/25 Kallie Todd MD [address] [facility] [address] [place] [address] Neurology 01/19/25
--- OUTSIDE RECORDS SUMMARY | 2025-02-16 03:17 | XMS_ITS | Clinical Summary ---
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 Not on file N ot on file [employer] Not on file Not on [...] Body Mass Index 25.44 07/04/2017 10:53 AM MANAGER MASSAGE DEPARTMENT Plan of Treatment Health Maintenance Due Date [...] REFLEX MEASURED LDL Routine 06/26/2017 8:44 AM MANAGER MASSAGE DEPARTMENT Routine general medical examination at a health care facility COLONOSCOPY SCREENING Routine 03/15/2014 Special screening for malignant neoplasms, colon Family history of colon cancer ANTI HIV 1/2 Routine 06/07/2011 2:09 PM MANAGER MASSAGE DEPARTMENT Screening for STDs (sexually transmitted diseases) from Last 3 Months or Most Recently Relevant to Health Maintenance Results * (ABNORMAL) LIPID PANEL W REFLEX MEASURED LDL (06/26/2017 8:44 AM MANAGER MASSAGE DEPARTMENT) CHOLESTEROL,TOTAL 205(H) 100 - 199 mg/dL 06/26/2017 9:59 AM MANAGER MASSAGE DEPARTMENT [facility] TRIGLYCERIDES 83 <150 mg/dL 06/26/2017 9:59 AM MANAGER MASSAGE DEPARTMENT [facility] HDL CHOLESTEROL 58 >40 mg/dL 8 9:59 AM MANAGER MASSAGE DEPARTMENT [facility] NON-HDL CHOLESTEROL 147(H) <145 mg/dl 06/26/2017 9:59 AM MANAGER MASSAGE DEPARTMENT [facility] CHOL/HDL RATIO 3.53 <4.50 06/26/2017 9:59 AM MANAGER MASSAGE DEPARTMENT [facility] LDL CHOLESTEROL 130 <=130 mg/dL 06/26/2017 9:59 AM MANAGER MASSAGE DEPARTMENT [facility] PROVIDER ORDERED STATUS RANDOM 06/26/2017 9:59 AM MANAGER MASSAGE DEPARTMENT [facility] Blood BLOOD SPECIMEN / Unknown Venipuncture / Unknown 06/26/2017 8:44 AM MANAGER MASSAGE DEPARTMENT 06/26/2017 8:44 AM MANAGER MASSAGE DEPARTMENT us Samuel Liu MD CHEMISTRY Final Re sult [address] [address] * COLONOSCOPY SCREENING (03/15/2014) us Samuel Liu MD GI PROCEDURE ORD Final R esult * ANTI HIV 1/2 (06/07/2011 2:09 PM MANAGER MASSAGE DEPARTMENT) ANTI HIV 1/2 Non-reacti ve [facility] Blood specimen (specimen) BLOOD SPECIMEN / Unknown 06/07/2011 2:09 PM MANAGER MASSAGE DEPARTMENT 06/07/2011 2:02 PM MANAGER MASSAGE DEPARTMENT us Samuel Liu MD SEND OUTS Final Re sult [facility] INTERNAL ZIP [address] [place] [phone] from Last 3 Months or Most Recently Relevant to Health Maintenance Insurance [facility] Care Teams Risk Prevention Engineer Relationship Specialty Start Date End Date Samuel Liu MD PCP - General Family Practice 07/02/03
--- NOTE | 2025-02-16 03:19 | ED_ITS ---
HPI - General Adult General Date Seen: 02/16/25 Chief complaint: Urogenital Problems, Male Stated complaint: painful urination Time Seen by Provider: 02/16/25 03:19 History of Present Illness HPI narrative: This is a 64-year-old gentleman [facility] with his fiancee for evaluation suprapubic pain and dysuria. He has an history of migraine headaches, and a known history of BPH. His primary care provider is Dr. Liu. Last saw him in June for BPH. He does have a mildly elevated PSA but stable. Most recently was 8.1. Previous prostate biopsies were negative. Patient reports that he has a longstanding trouble where he has your tarry hesitancy and some weakness of stream. Tonight however a he had to strain hard of unusual to get urine out and then started having increasing pain in his suprapubic region. He also has pain with urination. Subsequently was only able to urinate small amounts, drops and may be couple cups. He is having increasing pain, prompting his visit to the overnight. He does not have any fever. No f lank pain. No vomiting. No blood in his urine. Incidentally he did injuries finger last week and was put on and course of clindamycin antibiotics to prevent infections in that finger. He had been seen at a ER in [place]. He is allergic to amoxicillin. Related Data Previous Rx's ?Medication ?Instructions ?Recorded amitriptyline 25 mg tablet 25 mg PO QHS #30 tabs 01/17 ketorolac 10 mg tablet 10 mg PO TID 5 days #15 tabs 01/17/25 rizatriptan 10 mg tablet (Maxalt) See Rx Instructions PO .COMPLEX 01/17/25 #10 tabs zolmitriptan 5 mg tablet (Zomig) 5 mg PO Q2-4H PRN cassie lazarus 01/19/25 headache #10 tabs tramadol 50 mg tablet 50 mg PO Q8H PRN pain #30 ta bs 01/25/25 tamsulosin 0.4 mg capsule (Flomax) 0.4 mg PO DAILY #14 caps 02/16/25 Allergies Allergy/AdvReac Type Severity Reaction Status Date / Time escitalopram Allergy Intermediate Dizziness Verified 01/17/25 08:57 amoxicillin Allergy Mild Rash Verified 01/17/25 08:57 PFSH PFSH Medical History BPH (benign prostatic hyperplasia) ?N40.0 - Benign prostatic hyperplasia without lower urinary tract symptoms (ICD-10) Migraines ?G43.909 - Migraine, unspecified, not intractable, without status migrainosus (ICD-10) Restless legs syndrome ?G25.81 - Restless legs syndrome (ICD-10) High prostate specific antigen (PSA) (2013) ?R97.20 - Elevated prostate specific antigen [PSA] (ICD-10) Adenomatous polyp of colon (03/15/14) ?D12.6 - Benign neoplasm of colon, unspecified (ICD-10) [place] fracture (11/25/03) ?S02.401A - Maxillary fracture, unspecified side, initial encounter for closed fracture (ICD-10) History of severe acute respiratory syndrome coronavirus 2 (SARS-CoV-2) disease (03/15/20) ?Z86.16 - Personal history of COVID-19 (ICD-10) Surgical History Status post open reduction and internal fixation (ORIF) of fracture ?Z98.890 - Other specified postprocedural states (ICD-10) ?Z87.81 - Personal history of (healed) traumatic fracture (ICD-10) History of nevus excision (2006) ?Z98.890 - Other specified postprocedural states (ICD-10) ?Z87.2 - Personal history of diseases of the skin and subcutaneous tissue (ICD-10) History of cervical spinal surgery (08/09/04) ?Z98.890 - Other specified postprocedural states (ICD-10) Family History Other Colon cancer Social History Narrative: x 2, 2 kids, non-smoker, 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, 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 What is your current living situation?: I presently have a place to live Problems where you live: no known problems In the past 12 months, utilities in danger of being shut off: no In past 12 months, lack of transportation kept you from medical appts, meetings, work, or getting things needed for daily living: no In the past 12 mos, have been you worried that your food would run out before you had money to buy more?: never true In the past 12 mos, the food you bought just didn't last and you didn't have money to buy more?: never true Smoking Status: Never smoker Second hand tobacco smoke exposure: No How often do you have a drink containing alcohol: 2-3 times a week How many standard drinks containing alcohol do you have on a typical day: 3 or 4 How often do you have six or more drinks on one occasion: Never AUDIT-C Alcohol total score: 4 Non-prescribed substance use: marijuana (any form) How often does anyone, including family, friends and others, physically hurt you : never How often does anyone, including family, friends and others, insult or talk down to you: never How often does anyone, including family, friends and others, threaten you with harm: never How often does anyone, including family, friends and others, scream or curse at you: never Exam Narrative: Exam Narrative: Constitutional: Appears well-developed and well-nourished. Alert. Conversant. Non toxic. HENT: Head: Atraumatic. Nose: Nose normal. Mouth/Throat: Oral mucosa is clear and moist. no trismus. Eyes: Conjunctivae normal. EOM normal. Pupils equal, round, and reactive to light. No scleral icterus. Neck: Normal range of motion. Neck supple. No tracheal deviation present. Cardiovascular: Normal rate, regular rhythm. No gallop. No friction rub. No mu rmur heard. Symmetric radial artery pulses Pulmonary/Chest: Effort normal. No stridor. No respiratory distress. No wheezes. No rales. No rhonchi . No tenderness. Abdominal: Soft. Bowel sounds normal. No distension. No mass. Suprapubic tenderness. No rebound. No guarding. No CVA tenderness. Bladder scan reveals 999+ mL of urine after the patient went to the bathroom to urinate. Patient reports that he was able to urinate a couple of tbsp of urine into a cup and then less than a cup of urine into the toilet. He does notice less discomfort in his suprapubic region now than he had been having prior to arrival but he dry can tender. Musculoskeletal: RUE: Normal range of motion. No tenderness. No deformity LUE: Normal range of motion. No tenderness. No deformity RLE: Normal range of motion. No edema. No tenderness. No deformity LLE: Normal range of motion. No edema. No tenderness. No deformity Neurological: Alert and oriented to person, place, and time. Normal strength. CN II-VII intact. No sensory deficit. GCS eye subscore is 4. GCS verbal subscore is 5. GCS motor subscore is 6. Normal coordination Skin: Skin is warm and dry. No rash noted. No pallor. Normal capillary refill. Psychiatric: Normal mood. Normal affect. Const: Vital Signs, click to edit/add: Vital Signs - 24 hr 02/16/25 03:20 02/16/25 04:06 Temperature 97.9 F 97.9 F Pulse Rate [Pulse Oximeter] 80 78 Respiratory Rate 18 18 Blood Pressure [Ri ght Upper Arm] 170/96 H 155/78 H Pulse Oximetry 97 97 Oxygen Delivery Me thod Room Air Room Air Course Course ED Course: Patient arrived and was roomed in the ER bed 3. I met the nurses there and performed history and physical. Bladder scan revealed bladder volume of 999+ mL. We had the patient go to the bathroom and try to urinate. He was able to give a small volume of urine we got a sample but he says he probably only urinated perhaps a cup or less. Repeat bladder scan still [id number]+ mL of urine Nurses placed a Snell catheter. Placement went well. Patient had subsequent drainage of 1200 mL of clear yellow urine. Urinalysis came back negative for any signs of infection. After decompression of his bladder patient had resolution of his suprapubic pain. Repeat exam is nontender. Vital Signs Vital signs: Initial Vital Signs Temperature 97.9 F 02/16/25 03:20 Temperature Source Temporal Artery Scan 02/16/25 03:20 Pulse Rate 80 02/16/25 03:20 Respiratory Rate 18 02/16/25 03:20 Blood Pressure 170/96 H 02/16/25 03:20 Blood Pressure Mean 120 H 02/16/25 03:20 Blood Pressure Position Sitting 02/16/25 03:20 Pulse Oximetry 97 02/16/25 03:20 Oxygen Delivery Method Room Air 02/16/25 03:20 Vital Signs Temperature 97.9 F 02/16/25 03:20 Pulse Rate 80 02/16/25 03:20 Respiratory Rate 18 02/16/25 03:20 Blood Pressure 170/96 H 02/16/25 03:20 Pulse Oximetry 97 02/16/25 03:20 Oxygen Delivery Method Room Air 02/16/25 03:20 Temperature 97.9 F 02/16/25 04:06 Pulse Rate 78 02/16/25 04:06 Respiratory Rate 18 02/16/25 04:06 Blood Pressure 155/78 H 02/16/25 04:06 Pulse Oximetry 97 02/16/25 04:06 Oxygen Delivery Method Room Air 02/16/25 04:06 Medical Decision Making MDM Narrative Medical decision making narrative: Very pleasant 64-year-old gentleman presenting to the ER tonight with his fiancee for evaluation of suprapubic pain, dysuria. Evaluation here in the ER shows evidence for acute urinary retention. Full the catheter was placed and 1200 mL of urine we came out and the patient had resolution of his symptoms. He is feeling much better now. Cause of the acute urinary retention is unclear. Urinalysis is negative for infection. He is not having any other symptoms to suggest pyelonephritis, prostatitis. He does have a known history of mildly elevated PSA and a diagnosis of BPH but is not currently on any urinary meds. He is on meds for his headache and recently had Botox. Amitriptyline is a potential culprit for urinary retention. Given resolution of his abdominal pain, at this point I do not think he needs labs, CT, ultrasound or further workup for other causes of abdominal pain. Will start the patient on Flomax because of history of BPH in would recommend close outpatient follow-up within 3-4 days with his primary care provider, Dr. Liu for re-evaluation, trial of voiding. Discussed that he may also eventually need to follow-up with urology for more extensive evaluation or consideration of TURP. Precautions for return to the ER reviewed. Snell catheter care and instructions reviewed. Questions answered. Lab Data Labs: Lab Results 02/16/25 Range/Units 03:25 Urine Color Yellow (Yellow) Urine Appearance Clear (Clear) Urine pH 5.5 (5.0-8.5) Ur Specific [place] <= 1.005 (1.000-1.030) Urine Protein Negative (Negative) Urine Glucose (UA) Negative (Negative) Urine Ketones Negative (Negative) Urine Blood Negative (Negative) Urine Nitrite Negative (Negative) Urine Bilirubin Negative (Negative) Urine Urobilinogen 0.2 (0.2-1.0) Ur Leukocyte Esterase Negative (Negative) Urine RBC 0-2 (0-2) Urine WBC 0-2 (0-5) Ur Squamous Epith Cells Few (None-Few) Urine Bacteria Few A (None) Discharge Plan Discharge Clinical Impression: Acute urinary retention Patient Disposition: Home, Self-Care Condition: Stable Instructions: Urinary Retention in Men (ED), Snell Catheter Placement and Care (ED) Additional Instructions: As we discussed, your urine sample looks good tonight. No sign of a bladder infection. Laboratory will run a urine culture from urine sample, which takes a couple of days to result. If the culture shows signs of infection we will contact you by phone to start you on appropriate antibiotics. We suspect that your urinary difficulties probably caused by enlargement of your prostate. Please start on the medication, Flomax, to help improve your urinary flow. Start the medication this morning and take it once per day. Please follow-up with your regular doctor , Dr. Liu, within 3-4 days for recheck. If you have other concerns such as worsening abdominal pain, bloody urine, if your catheter stops draining, or if you have fever, vomiting, or any other problems, please come back to the ER right away to be rechecked. Prescriptions: New tamsulosin [Flomax] 0.4 mg capsule 0.4 mg PO DAILY Qty: 14 2RF No Action ketorolac 10 mg tablet 10 mg PO TID 5 Days Qty: 15 0RF rizatriptan [Maxalt] 10 mg tablet See Rx Instructions .ROUTE .COMPLEX Qty: 10 2RF Rx Instructions: take 1 tab at onset of headache; if no relief may repeat 1 tab after at least 2 hrs; max = 3 tabs/24 hr amitriptyline 25 mg tablet 25 mg PO QHS Qty: 30 2RF zolmitriptan [Zomig] 5 mg tablet 5 mg PO Q2-4H PRN (Reason: migraine headache) Qty: 10 0RF Rx Instructions: do not exceed 2 doses per 24 hrs tramadol 50 mg tablet 50 mg PO Q8H PRN (Reason: pain) Qty: 30 0RF Follow Up/Referrals: Samuel Liu MD [Primary Care Provider, Family Practice] Stand Alone Forms: RACTIVth Info Instructions
[2025-02-16 03:20] VITALS: BP 170/96; PULSE 80; RESP 18; TEMP 36.6; O2SAT 97; BMI 27.3
[2025-02-16 03:29] LABS: Appearance Urine Clear (Clear)
[2025-02-16] MEDS: lidocaine HCL 2 % JELLY (TOP) STERILE 6 ML UR (03:32)
[2025-02-16 04:06] VITALS: BP 155/78; PULSE 78; RESP 18; TEMP 36.6; O2SAT 97
== END 2025-02-16 04:15 | disposition home or self-care (01) ==
PROVIDERS: Emergency Provider Emergency Medicine; PCP Family Medicine
DX: R33.9 Retention of urine, unspecified (principal)
CPT/HCPCS: 51702; 51798; 81001; 87086; 99282; 99283

== ENCOUNTER 2025-02-17 14:56 | Outpatient (CLI) | payer MEDICAID, SELFPAY | END 2025-02-17 14:57 | disposition home or self-care (01) | LOC: NFLDREF 02-19 19:22 | PROVIDERS: PCP Family Medicine; Referring Provider Family Medicine; Visit Provider Family Medicine | DX: N40.1 Benign prostatic hyperplasia with lower urinary tract symptoms (principal); R35.0 Frequency of micturition; R33.8 Other retention of urine | CPT/HCPCS: 87086 ==